=== PATIENT | male | born 1940 | race Caucasian/White ===

== ENCOUNTER 2016-08-21 11:34 | Inpatient (IN) | payer MEDICARE, OTHER ==
[2016-08-21] MEDS ORDERED: Levalbuterol 1.25 MG/3 ML Inhal Soln UD IH STA ×2 (12:15)
[2016-08-21] MEDS ORDERED: guaiFENesin 200 mg/10 ml Syrup UD PO STA (12:15)
[2016-08-21] MEDS ORDERED: Ipratropium 0.02% Inhal Soln (0.5 mg/2.5 ml) UD IH STA (12:15)
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
[2016-08-21 13:14] LABS: ADD MANUAL DIFF? NO
[2016-08-21 13:21] LABS: BASO # 0.02 K/mm3 (0.0-2.0); BASO % 0.2 % (0.0-3.0); EOS % 0.2 % (1.5-5.0); GRAN # 9.21 (1.4-6.5); GRAN % 78.6 % (50.0-68.0); HEMATOCRIT 37.4 % (42.0-52.0); LYMPH # 1.1 (1.2-3.4); LYMPH % 9.4 % (22.0-35.0); MEAN CORPUSCULAR HEMOGLOBIN 31.9 pg (25.0-35.0); MEAN PLATELET VOLUME 9.3 fl (7.0-11.0); MONO # 1.4 (0.1-0.6); MONO % 11.6 % (1.0-6.0); PLATELET COUNT 187 10^3/uL (120.0-450.0); RED CELL DISTRIBUTION WIDTH 12.2 % (11.5-14.5); WHITE BLOOD COUNT 11.7 10^3/ul (4.5-11.0)
[2016-08-21 13:32] LABS: INR 1.29 (0.93-1.08); PARTIAL THROMBOPLASTIN TIME 27.9 Seconds (23.7-30.8)
[2016-08-21 13:33] LABS: D DIMER 0.32 mg/L FEU (0-0.50)
[2016-08-21 13:35] LABS: ALKALINE PHOSPHATASE 63 U/L (38-133); ALT/SGPT 17 U/L (7-56); AST/SGOT 37 U/L (15-59); BILIRUBIN,TOTAL 0.7 mg/dL (0.2-1.3); BLOOD UREA NITROGEN 26 mg/dL (7-21); CALCIUM 9.4 mg/dL (8.4-10.5); CARBON DIOXIDE 32 mmol/L (21-33); CHLORIDE 91 mmol/L (98-107); GFR AFRICAN-AMERICAN > 60; GLUCOSE,RANDOM 268 mg/dL (70-110); LIPASE 335 U/L (23-300); MAGNESIUM 1.6 mg/dL (1.7-2.2); POTASSIUM 4.8 mmol/L (3.6-5.0); SODIUM 130 mmol/L (132-148); TOTAL PROTEIN 7.6 g/dL (5.8-8.3)
[2016-08-21 13:50] LABS: TROPONIN I < 0.01 ng/mL
[2016-08-21] MEDS ORDERED: Azithromycin 500MG/NS 250ml 250 ML IVPB STA (14:55)
[2016-08-21] MEDS ORDERED: cefTRIAXone 1 gm 100 ML IV STA (14:55)
--- NOTE | 2016-08-21 16:00 | RAD ---
HISTORY: cough, cp COMPARISON: No prior. FINDINGS: LUNGS: No active pulmonary disease. PLEURA: No significant pleural effusion identified, no pneumothorax apparent. CARDIOVASCULAR: Normal. OSSEOUS STRUCTURES: No significant abnormalities. VISUALIZED UPPER ABDOMEN: Normal. OTHER FINDINGS: None. IMPRESSION: No active disease.
[2016-08-21 16:33] VITALS: BMI 25.8
--- NOTE | 2016-08-21 16:58 | CARD ---
APPROVED REPORT EKG Measurement Heart [id number] <Conclusion> Normal sinus rhythm Septal infarct, age undetermined Abnormal ECG
[2016-08-21] MEDS ORDERED: Non Formulary Medication (Ranitidine Hcl [Zantac] 1 TAB) PO SCH (18:00)
[2016-08-21] MEDS ORDERED: Benzocaine/Menthol (Cepacol) Lozenge MT PRN (18:06)
[2016-08-21 19:06] LABS: IRON 13 ug/dL (45-180)
[2016-08-21 19:16] LABS: AMYLASE 93 U/L (35-125); CHOLESTEROL 134 mg/dL (130-200); LIPASE 206 U/L (23-300)
[2016-08-21] MEDS: Insulin Reg-LOW-Coverage SC SCH ×2 (19:32→23:17)
[2016-08-21] MEDS: cefTRIAXone 1 gm 100 ML IVPB SCH (19:33)
[2016-08-21] MEDS: Magnesium Oxide 400 mg Tab UD PO SCH (19:41)
--- NOTE | 2016-08-21 20:01 | CON ---
DATE: 08/21/2016 REFERRING PHYSICIAN: Dr. Katz. REASON FOR CONSULT: Cough, shortness of breath, history of gastroesophageal reflux disease, may have sleep apnea syndrome. HISTORY OF PRESENT ILLNESS: This is a 76-year-old gentleman with a history of recurrent bronchitis, carries a diagnosis of chronic lung disease, history of pneumonia, diabetes, hypertension, hyperlipid emia, admits to have snoring at nighttime, very poor night sleep, multiple awakenings, admits to have a nocturnal aspiration with acid reflux. He sleeps best still while sitting up. He comes in [facility] e of cough, shortness of breath and sore throat. No nausea, no chest pain, no dysuria. No leg pain or leg swelling. PAST MEDICAL HISTORY: Chronic lung disease, pneumonia, diabetes, hypertension and hyperlipidemia. ALLERGIES: None known. SOCIAL HISTORY: Nonsmoker, nondrinker. FAMILY HISTORY: No significant cardiopulmonary disease reported. MEDICATIONS: He is on DuoNeb q.6 hours, Ecotrin 81 mg daily, insulin coverage, 400 mg twice a day, glyburide 5 mg twice a day, Pepcid 40 mg daily, Rocephin 1 gram daily, Solu-Medrol 40 mg q.12 ho urs, Zestril 20 mg daily, Zithromax 500 mg daily. REVIEW OF SYSTEMS: No headache, not much rhinitis. Rodney a cough, shortness of breath, epigastric disc omfort, multiple night awakenings. No nausea. Denies any vomiting. No dysuria. No leg pain, no le g swelling. PHYSICAL EXAMINATION: GENERAL: Lying in the bed in mild distress secondary to cough and shortness of breath. VITAL SIGNS: Temp is 98, heart rate is 97, respiratory rate is 20, blood pressure 130/59 and pulse o x 97% on room air. HEENT: Small oral cavity. Mallampati score is 4. NECK: Supple, no JVD, no maxillary area tenderness. Nasal mucosa looks okay. LUNGS: Has scattered rhonchi. HEART: S1, S2. ABDOMEN: Soft, nontender. No organomegaly. EXTREMITIES: There is no edema. NEUROLOGIC: Awake, alert, follows simple commands. LABORATORY DATA: Shows hemoglobin 12.7, hematocrit 37.4, WBC 11.7, platelet count is 187. INR 1.29, PTT 28. D-dimer is 0.32. Sodium 130, potassium 4.8, chloride 91, bicarbonate 32, BUN 26, creatinin e is 1.0, glucose is 268, calcium is 9.4, magnesium 1.6, AST 37, ALT 17, alkaline phosphatase is 63, LDH is 572. Iron is 88. Troponin is less than 0.01. ProBNP 148. Albumin is 3.8. Lipase is 335. Vitamin B12 is 420 and folate is more than 20. Urinalysis is not available. Had a chest x-ray done today in the Emergency Room, which shows no active pulmonary disease. CAT scan of the chest done abo 2013; it showed multiple areas of tree-in-bud opacity through the right lung, most compatible with infectious inflammatory process. IMPRESSION AND PLAN: Bronchiectasis with recurrent bronchitis, diabetes, hypertension, most likely h as gastroesophageal reflux disease especially exacerbated with sleep apnea syndrome. Agree with Dr. Katz with the present management. I will decrease Solu-Medrol to 20 q.12 hours. I will add Lyrica 25 mg twice a day. Will also add Cepacol lozenges, Tessalon Perles 3 times a day and Pepcid 40 mg t wice a day. Keep head elevated at 45 degree. GERD precaution. Gastric prophylaxis. Deep venous th rombosis prophylaxis. Add doxycycline p.o. twice a day. Will recommend outpatient PFT and sleep cosmo dy. Will do CAT scan of the chest for followup on bronchiectasis if there is any worsening of diseas e. Thank you and will follow with you. Barron Gan MD cc: [id number] TT: 08/21/2016 20:00:50 Confirmation # [id number] Dictation # [id number] adrienne
[2016-08-21 20:55] LABS: TROPONIN I 0.01 ng/mL
[2016-08-21] MEDS: Albuterol-Ipratrop 3 mg / 0.5 (3 ml) UD IH SCH (21:05)
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
[2016-08-21] MEDS ORDERED: MethylPREDNISolone 40 mg Vial IVP SCH (22:00)
[2016-08-21 22:33] LABS: FOLATE > 20.0 ng/mL
[2016-08-21] MEDS: MethylPREDNISolone 40 mg Vial IVP SCH (23:17)
[2016-08-22] MEDS: Albuterol-Ipratrop 3 mg / 0.5 (3 ml) UD IH SCH ×4 (02:36→21:05)
[2016-08-22 06:46] LABS: HEMATOCRIT 34.7 % (42.0-52.0); MEAN CELL VOLUME 93.3 fL (80.0-105.0); MEAN CORPUSCULAR HEMOGLOBIN 31.2 pg (25.0-35.0); MEAN CORPUSCULAR HGB CONC 33.4 g/dl (31.0-37.0); MEAN PLATELET VOLUME 9.7 fl (7.0-11.0); RED CELL DISTRIBUTION WIDTH 12.4 % (11.5-14.5); WHITE BLOOD COUNT 13.5 10^3/ul (4.5-11.0)
[2016-08-22 07:18] LABS: ALKALINE PHOSPHATASE 67 U/L (38-133); ALT/SGPT 31 U/L (7-56); AST/SGOT 37 U/L (15-59); BILIRUBIN,TOTAL 0.6 mg/dL (0.2-1.3); BLOOD UREA NITROGEN 33 mg/dL (7-21); CALCIUM 9.2 mg/dL (8.4-10.5); CARBON DIOXIDE 28 mmol/L (21-33); CHLORIDE 94 mmol/L (95-110); GFR AFRICAN-AMERICAN > 60; POTASSIUM 4.1 mmol/L (3.6-5.0); SODIUM 135 mmol/L (132-148); TOTAL PROTEIN 7.3 g/dL (5.8-8.3)
[2016-08-22 07:53] LABS: GLUCOSE,RANDOM 374 mg/dL (70-110)
[2016-08-22] MEDS: Pantoprazole 40 mg EC Tab PO SCH ×2 (08:23→17:16)
[2016-08-22] MEDS: Insulin Reg-LOW-Coverage SC SCH ×3 (08:23→17:16)
[2016-08-22] MEDS: cefTRIAXone 1 gm 100 ML IVPB SCH (09:41)
[2016-08-22] MEDS: Magnesium Oxide 400 mg Tab UD PO SCH ×2 (09:42→17:16)
[2016-08-22] MEDS: MethylPREDNISolone 40 mg Vial IVP SCH ×2 (09:44→21:30)
[2016-08-22] MEDS ORDERED: Azithromycin 500 MG in Sodium Chloride 0.9% 250 ML IVPB SCH (10:00)
--- NOTE | 2016-08-22 10:49 | CT ---
PROCEDURE: CT Chest without contrast HISTORY: bronchiactesis COMPARISON: CT of the chest 07/09/2013 TECHNIQUE: Contiguous axial images were obtained through the chest without intravenous contrast enhancement. Sagittal and coronal reconstructions were performed. Radiation dose (DLP): 344 mGy-cm. This CT exam was performed using one or more of the following dose reduction techniques: Automated exposure control, adjustment of the mA and/or kV according to patient size, and/or use of iterative reconstruction technique. FINDINGS: LUNGS: There is peribronchial thickening bilaterally consistent with bronchitis. There is a 9 mm nodule in the superior segment of the left lower lobe adjacent to the hilum. This is seen on image 72. This was not present on the previous exam. The peribronchial thickening is chronic MEDIASTINUM: Unremarkable thoracic aorta. No aneurysm. Normal sized heart. Main pulmonary artery unremarkable. No vascular congestion. No lymphadenopathy. PLEURA: No pleural fluid. No pneumothorax. BONES: No fracture. No destructive lesion. UPPER ABDOMEN: Grossly unremarkable. OTHER FINDINGS: None. IMPRESSION: Chronic peribronchial thickening consistent with bronchitis 9 mm nodule in the superior segment in a left lower lobe. Followup may be indicated
[2016-08-22] MEDS: Azithromycin 500MG/NS 250ml 250 ML IVPB SCH (11:38)
[2016-08-22 13:46] VITALS: RESP 20
--- NOTE | 2016-08-22 15:48 | CON ---
DATE: 08/22/2016 REASON FOR CONSULTATION: Cardiac evaluation, cough, chest pain on coughing. BRIEF CLINICAL HISTORY: This is a 76-year-old male with a past history of recurrent bronchitis. Adm itted with a sore throat and can feel congestion and on coughing, patient has chest pain. Denies any chest pain or dyspnea on exertion. Denies any chest pain, walk a few miles, but no chest pain. PAST MEDICAL HISTORY: Significant for chronic obstructive lung disease, pneumonia, diabetes, hyperte nsion, hyperlipidemia. ALLERGIES: No known drug allergy. SOCIAL HISTORY: Denies smoking. Denies any history of alcohol abuse. PREVIOUS CARDIAC WORKUP: The patient had a stress test 06/12/2012 and was found to be essentially nor mal myocardial perfusion study, ejection fraction 71%. The patient had also echo possibly in Dr. Rodas's office and told negative. The patient had yesterday, CT chest was done this morning when I cam e to see him and it was grossly unremarkable, 9 mm nodule in the superior segment of left lower lobe noted and follow up recommended. REVIEW OF SYSTEMS: As per HPI. CURRENT MEDICATIONS: The patient at home was taking lisinopril 20 mg daily, glyburide 5 mg, ranitidi ne 1 mg, aspirin 81 mg daily. PHYSICAL EXAMINATION: VITAL SIGNS: Temperature afebrile, heart rate 95, blood pressure 141/89. HEENT: PERRLA. Extraocular muscles intact. NECK: Supple. No carotid bruits. No thyromegaly. CHEST: Clear to auscultation. HEART: S1, S2 regular. ABDOMEN: Soft. EXTREMITIES: Clubbing, cyanosis negative. BLOOD WORKUP: WBC 13. , hemoglobin 11. , hematocrit 34.7, platelet count 196. Chemistry jaycee ws sodium 135, potassium 4. , chloride 94, carbon dioxide 28, anion gap of , BUN 70, creatin ine 1.0. Troponin 0.0, negative. EKG shows normal sinus, heart rate of 70. IMPRESSION: Atypical chest pain, no evidence of myocardial infarction, probably chronic obstru ctive pulmonary disease exacerbation, upper respiratory tract infection, bronchitis, rule out underly ing coronary artery disease, history of a stress test in 2012, negative, ex-tobacco abuse, diabetes, hypertension, hyperlipidemia. Given the multiple risk factors for coronary artery disease, suggest s tress test as outpatient. We will add CPK, troponin in the morning. We will do TSH and lipid profil e in today's blood. We will follow with you. Thank you, Dr. Katz, for providing us the opportunity in taking care of the patient. We will follo w with you. If remains stable, we will discontinue telemetry. Barron Bailey MD cc: [id number] TT: 08/22/2016 15:15:18 Confirmation # [id number] Dictation # [id number] en
--- NOTE | 2016-08-22 16:11 | PN ---
DATE: 08/22/2016 The patient is a 76-year-old male. The patient seen and examined on the bedside, looks comfortable. Cough is better, shortness of breath is better. No fever. Complaining about high sugar. No nausea , vomiting, diarrhea. No hematuria, no hematochezia. No chest pain, no palpitation. PHYSICAL EXAMINATION: VITAL SIGNS: Temperature 97.2, pulse 95, blood pressure 141/89, respiratory rate 20. HEENT: Head normocephalic, atraumatic. Eyes: PERRLA. Extraocular muscles intact. Conjunctivae pi nk. Eyelids unremarkable. Nose patent. Mucous membranes moist. NECK: Supple. No carotid bruit, no JVD, no thyromegaly. CHEST: Bilaterally symmetrical. HEART: S1, S2 positive. LUNGS: Clear to auscultation. ABDOMEN: Soft. Bowel sounds positive. No organomegaly. EXTREMITIES: No edema, no cyanosis. NEUROLOGIC: The patient is awake, alert, moving all 4 extremities. No focal deficits. MEDICATIONS: Cepacol lozenges, Ecotrin, insulin, Rocephin, Zithromax, DuoNeb, Lyrica, magnesium oxid e, glimepiride, pantoprazole, Solu-Medrol, lisinopril. LABORATORIES: White blood cells 13.5, hemoglobin 11.6, hematocrit 34.7, platelets 196. Sodium 135, potassium 4.1, BUN 33, creatinine 1.0, glucose 374, magnesium 1.6. ASSESSMENT AND PLAN: The patient is a 76-year-old male with leukocytosis, anemia, history of hyponat remia, hypochloremia, increased BUN, uncontrolled diabetes mellitus, hypomagnesemia, iron deficiency. Went for CAT scan of the chest without contrast. As per Dr. Sha Mays, chronic peribronchial t hickening consistent with bronchitis, 9 mm nodule in the superior segment in the left lower lobe, fol low up may be indicated. Seen by Dr. Gan. History of recurrent bronchitis with bronchiectasis, g astroesophageal reflux disease, especially exacerbated with sleep apnea syndrome. Dr. Gan decreas ed Solu-Medrol from 40 to 20 mg q. 12 hours, added Lyrica, added Cepacol lozenges, Tessalon Perles, P epcid. Gastroesophageal reflux disease, dyspepsia. Dr. Gan added doxycycline, recommended outpat ient pulmonary function test. Appreciate Dr. Gan's input. Waiting for Dr. Murillo's input. Gastr ointestinal and deep venous thrombosis prophylaxis. We will follow up. Kathi Katz MD cc: [id number] TT: 08/22/2016 16:10:54 Confirmation # [id number] Dictation # [id number] en
[2016-08-22 16:24] LABS: PH,URINE 5.5 (4.7-8.0); URINE BILIRUBIN NEGATIVE (NEGATIVE); URINE BLOOD TRACE-INTACT (NEGATIVE); URINE GLUCOSE (UA) >=1000 mg/dL (NEGATIVE); URINE KETONE NEGATIVE (NEGATIVE); URINE LEUKOCYTE ESTERASE NEGATIVE Leu/uL (NEGATIVE); URINE PROTEIN NEGATIVE mg/dL (<30 mg/dL); URINE UROBILINOGEN 0.2 E.U./dL (<1 E.U./dL)
[2016-08-22] MEDS ORDERED: Insulin Reg-LOW-Coverage SC SCH (16:30)
[2016-08-22 16:50] LABS: URINE APPEARANCE CLEAR (CLEAR); URINE COLOR YELLOW (YELLOW)
--- NOTE | 2016-08-22 17:25 | CARD ---
APPROVED REPORT EXAM: Two-dimensional and M-mode echocardiogram with Doppler and color Doppler. INDICATION Chest Pain LVFX 2D DIMENSIONS Left Atrium (2D)4.1 (1.6-4.0cm)IVSd0.9 (0.7-1.1cm) LVDd3.8 (3.9-5.9cm)PWd1.1 (0.7-1.1cm) LVDs2.6 (2.5-4.0cm)FS (%) 32.1 % LVEF (%)61.1 (>50%) M-Mode DIMENSIONS Aortic Root2.80 (2.2-3.7cm)Aortic Cusp Exc.1.70 (1.5-2.0cm) Aortic Valve AoV Peak Sbantzns205.0cm/sAoV VTI32.7cmAO Peak GR.14mmHg LVOT Peak Fatvwrnf787.0cm/sLVOT VTI26.20cmAO Mean GR.7mmHg Mitral Valve MV E Fmetnvjj407.0cm/sMV A Hswmipwx979.0cm/sE/A ratio0.7 TDI Lateral E' Peak V9.85cm/sMedial E' Peak V7.31cm/sE/Lateral E'10.4 E/Medial E'14.0 Pulmonary Valve PV Peak Xxifatxw30.5cm/sPV Peak Grad.4mmHg Tricuspid Valve TR Peak Ujpkqmrt431hx/sRAP JVWQAWYI23bzXuMT Peak Gr.46mmHg JWVE79jvSj LEFT VENTRICLE The left ventricle is normal size. There is normal left ventricular wall thickness. The left ventricular function is normal.EF-55-60% There is normal LV segmental wall motion. Transmitral Doppler flow pattern is Grade III-reversible restrictive diastolic dysfunction. No left ventricle thrombus noted on this study. There is no ventricular septal defect visualized. There is no left ventricular aneurysm. There is no mass noted in the left ventricle. RIGHT VENTRICLE The right ventricle is normal size. There is normal right ventricular wall thickness. The right ventricular systolic function is normal. ATRIA The left atrium is mildly dilated. The right atrium size is normal. The interatrial septum is intact with no evidence for an atrial septal defect. AORTIC VALVE The aortic valve is normal in structure. No aortic regurgitation is present. There is no aortic valvular stenosis. There is no aortic valvular vegetation. MITRAL VALVE The mitral valve is thickened but opens well. Mitral regurgitation is mild. There is no mitral valve stenosis. There is no evidence of mitral valve prolapse. TRICUSPID VALVE The tricuspid valve leaflets are thickened , but open well. There is mild to moderate tricuspid regurgitation.RVSP-56 mmof Hg. There is no tricuspid valve stenosis. There is no tricuspid valve prolapse or vegetation. PULMONIC VALVE The pulmonic valve is borderline thickened. There is trace to mild pulmonic valvular regurgitation. There is no pulmonic valvular stenosis. GREAT VESSELS The aortic root is normal in size. The ascending aorta is normal in size. The pulmonary artery is normal. The IVC is normal in size and collapses >50% with inspiration. PERICARDIAL EFFUSION There is no pleural effusion. There is no pericardial effusion. <Conclusion> The left ventricle is normal size. There is normal left ventricular wall thickness. The left ventricular function is normal.EF-55-60% Mitral regurgitation is mild. There is mild to moderate tricuspid regurgitation.RVSP-56 mmof Hg.
--- NOTE | 2016-08-22 18:44 | PN ---
DATE: 08/22/2016 REFERRING PHYSICIAN: Dr. Katz. SUBJECTIVE: He is lying in the bed, head at 45 degrees, having dinner, feels much better, decreased cough, decreased shortness of breath. No nausea, vomiting, diarrhea. No leg pain or leg swelling. Admitted to have snoring, daytime sleepy and tired. OBJECTIVE: GENERAL: No acute distress. VITAL SIGNS: Temp is 98, heart rate is 95, respiratory rate is 20, blood pressure 141/89, pulse ox 9 4% on room air. HEENT: Moist mucous membrane. Crowded airway. Mallampati score is 4. NECK: Supple. No JVD. LUNGS: Has scattered rhonchi. HEART: S1 and S2. ABDOMEN: Soft, nontender. No organomegaly. EXTREMITIES: No edema. NEUROLOGIC: Awake, alert, follows simple commands. MEDICATIONS: He is on Cepacol lozenges q. 2 hours p.r.n., DuoNeb q. 6 hours, Ecotrin 81 mg daily, me tformin 500 mg daily, insulin coverage, Lyrica 25 mg twice a day, mag oxide 400 mg twice a day, glybu ride 5 mg twice a day, Protonix 40 mg daily, Rocephin 1 gram daily, Solu-Medrol 20 mg q. 12 hours, T essalon Perles 100 mg 3 times a day, Zestril 20 mg daily, Zithromax 500 mg daily. LABORATORY DATA: Shows hemoglobin 11.6, hematocrit 34.7, WBC 13.4, platelet count is 196. Sodium 13 5, potassium 4.1, chloride 94, bicarbonate 28, BUN 33, creatinine 1.0, glucose 415, calcium is 9.2. AST 37, ALT 31, alkaline phosphatase is 67. Albumin is 3.7. TSH 0.2. Microbiology: Blood cultures have been negative. CAT scan of the chest done yesterday, which shows chronic peribronchial thicken ing consistent with bronchitis, 9 mm nodule in the superior segment of the left lower lobe. Followup indicated. Had echocardiogram done today, which shows normal LV ejection fraction of 55-60%, mitral regurg, ywbx-vn-gvaoernz tricuspid regurg, right ventricular systolic pressure is 56. IMPRESSION AND PLAN: Bronchiectasis with acute bronchitis, lung nodule, diabetes, hypertension, most likely has gastroesophageal reflux disease, may have sleep apnea syndrome, cardiac diastolic dysfunc tion with pulmonary hypertension. Continue IV and inhaled bronchodilator, keep head elevated at 45 d egree. Proton inhibitor, DVT prophylaxis. Will need followup CAT scan in 3 months to assure the sta bility of lung nodule. We will also need attended sleep study as outpatient, PFT as outpatient. Adam nk you and will follow with you. Barron Gan MD cc: [id number] TT: 08/22/2016 18:43:56 Confirmation # [id number] Dictation # [id number] jn
[2016-08-22 18:51] LABS: URINE BACTERIA SMALL (NEG); URINE EPITHELIAL CELLS 0 - 2 /hpf (0-5); URINE WBC 0 - 2 /hpf (0-6)
[2016-08-22] MEDS: Insulin Reg-HIGH-Coverage SC SCH (21:48)
[2016-08-23] MEDS: Albuterol-Ipratrop 3 mg / 0.5 (3 ml) UD IH SCH ×5 (01:22→23:21)
[2016-08-23] MEDS: Magnesium Oxide 400 mg Tab UD PO SCH ×2 (10:59→17:35)
[2016-08-23] MEDS: cefTRIAXone 1 gm 100 ML IVPB SCH (10:59)
[2016-08-23] MEDS: Pantoprazole 40 mg EC Tab PO SCH ×2 (10:59→17:35)
[2016-08-23] MEDS: MethylPREDNISolone 40 mg Vial IVP SCH (11:00)
[2016-08-23] MEDS: Azithromycin 500MG/NS 250ml 250 ML IVPB SCH (11:00)
[2016-08-23] MEDS: Insulin Reg-HIGH-Coverage SC SCH ×4 (11:06→23:49)
--- NOTE | 2016-08-23 13:44 | PN ---
DATE: 08/23/2016 REASON FOR CONSULTATION AND FOLLOWUP: Cardiac evaluation, chest pain and coughing, atypical. BRIEF CLINICAL HISTORY: This is a 76-year-old male with a past medical history significant for recur rent bronchitis, admitted with sore throat and congestion and coughing. Denies any chest pain, short ness of breath, any palpitation now. PHYSICAL EXAMINATION: As follows: VITAL SIGNS: Temperature afebrile, heart rate 85, blood pressure 123/65. HEENT: PERRLA. Extraocular muscles intact. NECK: Supple. No carotid bruits. No thyromegaly. CHEST: Clear to auscultation. HEART: S1, S2 regular. ABDOMEN: Soft. EXTREMITIES: Clubbing and cyanosis negative. BLOOD WORKUP: As follows: WBC 13.5, hemoglobin 11.6, hematocrit 34.7, platelet count 196. Chemistr y shows sodium 135, potassium ____, chloride 94, carbon dioxide 28, anion gap of 17, BUN 33, creatini ne 1.0. Troponin 0.01, negative. No evidence of acute coronary syndrome. Atypical chest pain. The patient underwent echocardiograph y done yesterday that showed normal LV size, ejection fraction 55% to 60%, mild mitral regurgitation, emzz-gi-trjpvzki tricuspid regurgitation, RV systolic pressure 56. Chest CT showed chronic peribron chial thickening consistent with a bronchitis. RECOMMENDATION: Continue aggressive treatment for COPD. The patient is scheduled for a stress test on 09/01/2016. We will follow with you. Thank you, Dr. Katz, for providing the opportunity in taking care of the patient. Barron Bailey MD cc: [id number] TT: 08/23/2016 13:44:28 Confirmation # [id number] Dictation # [id number]
[2016-08-23] MEDS ORDERED: Insulin Regular 1 UNITS/0.01 ML ML SC STA (15:23)
--- NOTE | 2016-08-23 21:51 | PN ---
DATE: 08/23/2016 REFERRING PHYSICIAN: Dr. Katz. SUBJECTIVELY: He is lying in the bed, head at 45 degrees. Feels much better. Walked around the [employer] station today. Cough is improved. No nausea, no vomiting, diarrhea, leg pain, or leg swelling. OBJECTIVELY: No acute distress. Temp is 98, heart rate is 85, respiratory rate is 20, blood pressure 120/85, pulse ox 97% on room air . HENT: Moist mucous membranes. Small oral cavity. NECK: Supple, no JVD. LUNGS: Have a fair airflow with few rhonchi. HEART: S1, S2. ABDOMEN: Soft, nontender. No organomegaly. EXTREMITIES: There is no edema. NEUROLOGICALLY: Awake, alert. Follows simple commands. MEDICATIONS: He is on Cepacol lozenges q. 12 hours p.r.n., DuoNeb q. 6 hours, Ecotrin 81 mg daily, m etformin 1000 mg twice a day, insulin coverage, Januvia 100 mg daily, Lyrica 25 mg twice daily, mag o xide 40 mg twice a day, Glyburide is at 5 mg twice a day, prednisone 10 mg daily, Protonix 20 mg twic e a day, Rocephin 1 g daily, Tessalon Perles 100 mg 3 times a day, Zestril 20 mg daily, Zithromax 50 0 mg daily. LABORATORY DATA: Reviewed. Blood sugar this morning 363. Microbiology: Blood cultures have been n egative. IMPRESSION AND PLAN: Bronchiectasis with acute bronchitis, lung nodule, diabetes, hypertension, makenna roesophageal reflux disease, may have component of sleep apnea syndrome, cardiac diastolic dysfunctio n, pulmonary hypertension. I had a long discussion with the patient about sleep apnea and its consequences, relation to GERD and recurrent bronchitis. Spoke to nurse practitioner earlier today. Solu-Medrol discontinued. Placed on prednisone. Will cut down antibiotics. Thank you, and will follow with you. Barron Gan MD cc: [id number] TT: 08/23/2016 21:50:45 Confirmation # [id number] Dictation # [id number] jocelyn
--- NOTE | 2016-08-24 01:30 | PN ---
DATE: 08/23/2016 SUBJECTIVE: The patient is a 76-year-old male. The patient was seen and examined at the bedside, looks comfortable. No nausea, vomiting, or diarrhea. No hematuria or hematochezia. Coughing is better. Shortness of breath is better. No swelling of the legs. PHYSICAL EXAMINATION: VITAL SIGNS: Temperature 98, heart rate 85, respiratory rate 18, blood pressure 122/65. HEENT: Head normocephalic, atraumatic. Eyes: PERRLA, extraocular muscles intact, conjunctivae pink. Eyelids: Unremarkable. Nose: Patent. NECK: Supple. No carotid bruit, JVD, or thyromegaly. CHEST: Bilaterally symmetrical. HEART: S1, S2 positive. LUNGS: Clear to auscultation. ABDOMEN: Soft. Bowel sounds present. No organomegaly. EXTREMITIES: No clubbing, no cyanosis. NEUROLOGIC: The patient is awake, alert. Moving all 4 extremities. No focal deficit. LABORATORY DATA: White blood cell 13.5, hemoglobin 11.6, hematocrit 34.7, platelets 196. Sodium 135, chloride 94, bicarbonate 28, BUN 33, creatinine 1.0. Troponin is 0.01. ASSESSMENT AND PLAN: The patient is a 76-year-old male who came in with bronchitis, chest pain. According to clother in, no evidence of acute coronary artery syndrome, atypical chest pain. The patient underwent echocardiography. It showed normal ventricular size, ejection fraction 55-60%, adro-fb-spvuzdcx tricuspid regurgitation, right ventricular systolic pressure 56. CT scan of the chest shows chronic peribronchial thickening consistent with bronchitis. The patient is scheduled for stress test on 09/01/2016, as per clother in. Seen by the fish hatchery supervisor, Dr. Gan. The patient has bronchiectasis, asthma, hypertension, maybe gastroesophageal reflux disease, sleep apnea syndrome, pulmonary hypertension. Continue IV and inhaled bronchodilators, proton pump inhibitors, DVT prophylaxis. Need followup CT scan in 3 months. Given tapering dose of steroids and antibiotics. We will follow up. Kathi Katz MD cc: [id number] TT: 08/24/2016 01:30:06 Confirmation # [id number] Dictation # [id number] bennie COOL
[2016-08-24] MEDS: Albuterol-Ipratrop 3 mg / 0.5 (3 ml) UD IH SCH ×2 (01:41→07:41)
[2016-08-24 07:16] LABS: ADD MANUAL DIFF? NO
[2016-08-24 07:26] LABS: BASO # 0.03 K/mm3 (0.0-2.0); BASO % 0.2 % (0.0-3.0); EOS % 0.1 % (1.5-5.0); GRAN # 13.71 (1.4-6.5); GRAN % 74.7 % (50.0-68.0); HEMATOCRIT 33.5 % (42.0-52.0); LYMPH # 2.8 (1.2-3.4); LYMPH % 15.1 % (22.0-35.0); MEAN CELL VOLUME 93.8 fL (80.0-105.0); MEAN CORPUSCULAR HEMOGLOBIN 31.4 pg (25.0-35.0); MEAN CORPUSCULAR HGB CONC 33.4 g/dl (31.0-37.0); MEAN PLATELET VOLUME 9.7 fl (7.0-11.0); MONO # 1.8 (0.1-0.6); MONO % 9.9 % (1.0-6.0); PLATELET COUNT 219 10^3/uL (120.0-450.0); RED CELL DISTRIBUTION WIDTH 12.4 % (11.5-14.5); WHITE BLOOD COUNT 18.3 10^3/ul (4.5-11.0)
[2016-08-24 07:52] LABS: ALB/GLOB RATIO 0.9 (1.1-1.8); ALKALINE PHOSPHATASE 56 U/L (38-133); ALT/SGPT 34 U/L (7-56); AST/SGOT 39 U/L (15-59); BILIRUBIN,TOTAL 0.5 mg/dL (0.2-1.3); BLOOD UREA NITROGEN 39 mg/dL (7-21); CARBON DIOXIDE 30 mmol/L (21-33); CHLORIDE 96 mmol/L (98-107); GFR AFRICAN-AMERICAN > 60; MAGNESIUM 2.3 mg/dL (1.7-2.2); POTASSIUM 4.6 mmol/L (3.6-5.0); SODIUM 133 mmol/L (132-148); TOTAL PROTEIN 7.4 g/dL (5.8-8.3)
[2016-08-24 08:04] LABS: GLUCOSE,RANDOM 46 mg/dL (70-110)
[2016-08-24] MEDS: Pantoprazole 40 mg EC Tab PO SCH (08:29)
[2016-08-24] MEDS: Insulin Reg-HIGH-Coverage SC SCH ×2 (08:29→11:54)
[2016-08-24 09:08] VITALS: BP 126/66; PULSE 94; TEMP 97; O2SAT 100
[2016-08-24] MEDS: cefTRIAXone 1 gm 100 ML IVPB SCH (09:54)
--- NOTE | 2016-08-25 08:19 | PN ---
DATE: 08/24/2016 The patient is in room 577, bed 2. REASON FOR CONSULTATION AND FOLLOWUP: Cardiac evaluation, chest pain with cough, atypical chest pain . HISTORY OF PRESENT ILLNESS: The patient is a 76-year-old male with past medical history significant for recurrent bronchitis, admitted with a sore throat and congestion, coughing. Denies any chest marco n, shortness of breath or any palpitation. The patient stated that when he coughs, he gets some ches t pain. Otherwise, he has no chest pain. The patient is feeling much better now. He does not have any pain at present. PHYSICAL EXAMINATION: VITAL SIGNS: Blood pressure 126/66, respirations 20, pulse 94, temperature 97. HEAD: Normocephalic. EYES: Pupils normal. Conjunctivae slightly pale. NECK: JVP low. Carotid equal. THORAX: AP diameter normal. LUNGS: Clear. CARDIOVASCULAR: S1, S2. ABDOMEN: Soft, nontender, no organomegaly. Bowel sounds normal. EXTREMITIES: No clubbing, no cyanosis. LABORATORY DATA: WBC is 18.3, hemoglobin 11.2, hematocrit 33.5, platelet 219. Sugar 249. Sodium 13 5, potassium 4.1, BUN 33, creatinine 1.0. Today's BUN 39, creatinine 1.2, calcium 9.0, magnesium 2.3 . AST, ALT normal. Total protein and albumin normal. DIAGNOSES: Chest pain, atypical associated with only cough. Echo showed normal left ventricular siz e, ejection fraction 55%-60%, mild mitral regurgitation, mild to moderate tricuspid regurg, right reji tricular systolic pressure of [address] showed chronic peribronchial thickening consiste nt with bronchitis. PLAN: The patient is scheduled for a stress test 09/01/2016. We will continue present therapy for br onchitis. The patient on lisinopril 20 daily, glyburide 5 b.i.d., Zantac 1 b.i.d., prednisone 10 mg daily, metformin 500 b.i.d. We will continue present therapy and will follow the stress test. Barron Murillo MD cc: [id number] TT: 08/24/2016 19:26:21 Confirmation # [id number] Dictation # [id number] jn
== END 2016-08-24 13:51 | disposition home or self-care (01) | DRG 191 ==
LOC: ED 11:34 → ERH 14:53 → 2RNO 18:44 → OBSVTOIN 08-22 10:13 → 5RSO 08-22 16:58
PROVIDERS: ADMIT Internal Medicine; ATTEND Internal Medicine
DX: J47.0 Bronchiectasis with acute lower respiratory infection (principal); E87.1 Hypo-osmolality and hyponatremia; I27.2 Other secondary pulmonary hypertension; E11.9 Type 2 diabetes mellitus without complications; D64.9 Anemia, unspecified; I10 Essential (primary) hypertension; J45.909 Unspecified asthma, uncomplicated; I08.1 Rheumatic disorders of both mitral and tricuspid valves; E78.5 Hyperlipidemia, unspecified; G47.30 Sleep apnea, unspecified; E78.00 Pure hypercholesterolemia, unspecified; J20.9 Acute bronchitis, unspecified; K21.9 Gastro-esophageal reflux disease without esophagitis; Z79.82 Long term (current) use of aspirin; Z79.899 Other long term (current) drug therapy; Z87.01 Personal history of pneumonia (recurrent); Z87.891 Personal history of nicotine dependence; Z98.42 Cataract extraction status, left eye; Z98.41 Cataract extraction status, right eye; K59.00 Constipation, unspecified; R00.0 Tachycardia, unspecified; R40.2412 Glasgow coma scale score 13-15, at arrival to emergency department; R91.1 Solitary pulmonary nodule

== ENCOUNTER 2017-07-06 10:26 | Observation (INO) | payer MEDICARE, OTHER ==
[2017-07-06 12:02] VITALS: BMI 24.3
[2017-07-06] MEDS ORDERED: Sodium Chloride 0.9% 1,000 ML IV STA (12:04)
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
[2017-07-06] MEDS ORDERED: Vancomycin 1gm in NS 250ml 1 GM/250 ML BAG IVPB STA (12:26)
[2017-07-06] MEDS ORDERED: Piperacillin/Tazobact 3.375 gm 100 ML IVPB STA (12:26)
[2017-07-06 12:59] LABS: BASO # 0.05 K/mm3 (0.0-2.0); BASO % 0.7 % (0.0-3.0); EOS # 0.4 (0.0-0.7); EOS % 5.2 % (1.5-5.0); GRAN # 4.05 (1.4-6.5); GRAN % 59.8 % (50.0-68.0); HEMOGLOBIN 11.6 g/dL (14.0-18.0); LYMPH # 1.5 (1.2-3.4); LYMPH % 21.9 % (22.0-35.0); MEAN CELL VOLUME 95.8 fl (80.0-105.0); MEAN CORPUSCULAR HEMOGLOBIN 30.7 pg (25.0-35.0); MEAN PLATELET VOLUME 9.5 fl (7.0-11.0); MONO # 0.8 (0.1-0.6); MONO % 12.4 % (1.0-6.0); RBC 3.78 10^6/uL (3.5-6.1); RED CELL DISTRIBUTION WIDTH 13.5 % (11.5-14.5); WHITE BLOOD COUNT 6.8 10^3/ul (4.5-11.0)
[2017-07-06 13:00] LABS: VENOUS BLOOD GAS BASE EXCESS 2.7 mmol/L (0.0-2.0); VENOUS BLOOD GAS PO2 31 mm/Hg (30-55); VENOUS BLOOD PH 7.27 (7.32-7.43)
[2017-07-06 13:11] LABS: ALB/GLOB RATIO 1.2 (1.1-1.8); ALBUMIN 3.9 g/dL (3.0-4.8); ALT/SGPT 29 U/L (7-56); AST/SGOT 26 U/L (17-59); BLOOD UREA NITROGEN 21 mg/dL (7-21); CALCIUM 10.1 mg/dL (8.4-10.5); GFR AFRICAN-AMERICAN > 60; GFR NON-AFRICAN AMERICAN > 60; LIPASE 354 U/L (23-300)
[2017-07-06 14:09] LABS: PH,URINE 6.5 (4.7-8.0); URINE BILIRUBIN NEGATIVE (NEGATIVE); URINE BLOOD NEGATIVE (NEGATIVE); URINE GLUCOSE (UA) 250 mg/dL (NEGATIVE); URINE LEUKOCYTE ESTERASE NEGATIVE Leu/uL (NEGATIVE); URINE NITRATE NEGATIVE (NEGATIVE); URINE PROTEIN NEGATIVE mg/dL (<30 mg/dL); URINE UROBILINOGEN 0.2 E.U./dL (<1 E.U./dL)
[2017-07-06 14:12] LABS: URINE APPEARANCE CLEAR (CLEAR); URINE COLOR LIGHT YELLOW (YELLOW)
[2017-07-06 15:45] VITALS: RESP 18
[2017-07-06] MEDS ORDERED: Influenza Vaccine 60 mcg/0.5 mL SYR (4YR UP) IM ONE (17:11)
[2017-07-06] MEDS ORDERED: Pneumococcal 23-Valent Vaccine IM ONE (17:11)
[2017-07-06] MEDS: Insulin Reg-LOW-Coverage SC SCH (22:34)
[2017-07-07] MEDS ORDERED: Pantoprazole 40 mg EC Tab PO SCH (06:00)
[2017-07-07] MEDS: Insulin Reg-LOW-Coverage SC SCH ×2 (08:00→12:00)
[2017-07-07 08:37] VITALS: BP 102/46; PULSE 75; TEMP 98.5; O2SAT 98
[2017-07-07] MEDS ORDERED: Clotrimazole 1% Top Soln(10 ml) TOP SCH (10:00)
[2017-07-07] MEDS ORDERED: cefTRIAXone 1 gm 1 GM/100 ML BAG IVPB SCH (10:00)
--- NOTE | 2017-07-07 15:49 | HP ---
CHIEF COMPLAINT: Swelling of the leg, redness and warmth. HISTORY OF PRESENT ILLNESS: Mr. Rogers Stevens is a 77-year-old male with past medical history of diabetes mellitus, hypertension, hypercholesterolemia, and pancreatitis who came to the emergency department complaining of rash to his inner left arm three weeks ago, the patient noticed mild pain this morning causing him to come to further evaluation. The patient denies fever, chills. He wants to go home. No nausea, vomiting, or diarrhea. No hematuria or hematochezia. No headache. No dizziness. PAST MEDICAL HISTORY: Pneumonia, hypertension, bilateral cataract surgery, diabetes mellitus type 2, constipation. FAMILY HISTORY: Father and mother, noncontributory. HABITS: Never smoked. No drugs. No ethanol. ALLERGIES: THE PATIENT IS NOT ALLERGIC TO ANY MEDICATIONS. HOME MEDICATIONS: Aspirin, Zantac, and Zestril. REVIEW OF SYSTEMS: The patient was seen and examined at the bedside. Looking comfortable. No fever. No chills. No night sweats. No chest pain. No shortness of breath. No nausea, vomiting, or diarrhea. PHYSICAL EXAMINATION: VITAL SIGNS: Temperature 98.7, pulse 86, respiratory rate 18, blood pressure 120/80 . HEENT: Head: Normocephalic, atraumatic. Eyes: PERRLA. Extraocular muscles intact. Conjunctivae clear. Nose patent. Mucous membranes are moist. NECK: Supple. No carotid bruits. No JVD or thyromegaly. CHEST: Bilaterally symmetrical. HEART: S1 and S2 positive. LUNGS: cta . ABDOMEN: Soft. Bowel sounds present. No organomegaly. EXTREMITIES: No edema. No cyanosis. NEUROLOGIC: The patient is awake and alert. Moving all four extremities. No focal deficit. ASSESSMENT AND PLAN: The patient came with coughing, shortness of breath, chronic obstructive pulmonary disease exacerbation, cellulitis of the lower extremities. Gastrointestinal and deep venous thrombosis prophylaxis. Repeat labs. We will follow up. Kathi Katz MD SILVINA
--- NOTE | 2017-07-08 07:51 | CON ---
DATE: 07/07/2017 LOCATION: The patient is in bed. The patient was seen earlier this morning in room 575, bed 2. CHIEF COMPLAINT: Left arm erythema times several days. HISTORY OF PRESENT ILLNESS: This is a 77-year-old [place] male with past medical history significant for diabetes mellitus, hypertension, high cholesterol, pancreatitis, was seen in the emergency room because of rash in his left arm has gone worse. He denied any fevers, any chills. No nausea, no vomiting, no chest pain. PAST MEDICAL HISTORY: Significant for diabetes, hypertension, high cholesterol and pancreatitis. PAST SURGICAL HISTORY: Includes cataract surgery. ALLERGIES: THE PATIENT HAS NO KNOWN ALLERGIES TO ANY ANTIBIOTICS. MEDICATIONS AT HOME: Include Zestril, aspirin and Zantac. PHYSICAL EXAMINATION VITAL SIGNS: The patient's temperature of 98, blood pressure is 113/50, respiratory rate of 18, heart rate of 76. HEENT: Examination is unremarkable. NECK: Supple. LUNGS: Decreased breath sounds. HEART: Normal S1, S2. ABDOMEN: Soft, nontender. EXTREMITIES: Examination of left arm reveals the patient has mild erythema. No evidence of essential pallor. In the inner left arm, there is some tinea. LABORATORY DATA: Laboratory examination reveals a white count of 6.8, hemoglobin of 11. Sedimentation rate is 50. Blood gases are noted. BUN of 21, creatinine of 1.0, lipase of 354. Urinalysis is noted. Microbiology reveals blood cultures are negative, urine cultures are negative. Dr. Katz's history and physical examination is noted. ASSESSMENT AND PLAN: This is a 77-year-old [place] male with diabetes, hypertension, high cholesterol, pancreatitis. No evidence of dog exposure. The patient lives in [place] and is not exposed to any ticks in the middle of the winter. Lyme disease would be unusual for a rash of this kind and a short course of antibiotics and close followup. We would also place the patient on an antifungal cream as it had an fungal component of that arm. Case discussed with nurse practitioner on the floor and should follow up as outpatient closely. Jevon Palmer MD
== END 2017-07-07 17:30 | disposition home or self-care (01) ==
LOC: ED 10:26 → INTOOBSV 12:27 → ERH 12:27 → 5RSO 18:37
PROVIDERS: ADMIT Internal Medicine; ATTEND Internal Medicine
DX: L03.114 Cellulitis of left upper limb (principal); L03.115 Cellulitis of right lower limb; L03.116 Cellulitis of left lower limb; E11.9 Type 2 diabetes mellitus without complications; E78.5 Hyperlipidemia, unspecified; E78.00 Pure hypercholesterolemia, unspecified; I10 Essential (primary) hypertension; J44.1 Chronic obstructive pulmonary disease with (acute) exacerbation; K85.90 Acute pancreatitis without necrosis or infection, unspecified; Z79.82 Long term (current) use of aspirin; Z87.01 Personal history of pneumonia (recurrent); Z98.42 Cataract extraction status, left eye; Z98.41 Cataract extraction status, right eye; K59.00 Constipation, unspecified
CPT/HCPCS: 36415; 80053; 81003; 82803; 82948; 83690; 85025; 85651; 86140; 86618; 87040; 87086; 96361; 96365; 96366; 96367; 99285; G0378; J0696; J2543; J7040

== ENCOUNTER 2018-03-16 20:11 | Observation (INO) | payer MEDICARE, OTHER ==
[2018-03-16] MEDS: Sodium Chloride 0.9% 1,000 ML IV SCH (21:15)
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
[2018-03-16 21:33] LABS: HEMOGLOBIN 12.5 g/dL (14.0-18.0); MEAN CELL VOLUME 92.1 fl (80.0-105.0); MEAN CORPUSCULAR HEMOGLOBIN 30.9 pg (25.0-35.0); MEAN CORPUSCULAR HGB CONC 33.6 g/dl (31.0-37.0); MEAN PLATELET VOLUME 9.3 fl (7.0-11.0); RBC 4.04 10^6/uL (3.5-6.1); RED CELL DISTRIBUTION WIDTH 12.7 % (11.5-14.5)
[2018-03-16 21:41] LABS: ALB/GLOB RATIO 1.1 (1.1-1.8); ALBUMIN 4.1 g/dL (3.0-4.8); ALT/SGPT 28 U/L (7-56); AST/SGOT 38 U/L (17-59); BLOOD UREA NITROGEN 24 mg/dL (7-21); CALCIUM 9.7 mg/dL (8.4-10.5); GFR NON-AFRICAN AMERICAN > 60; LIPASE 203 U/L (23-300)
[2018-03-16 21:52] LABS: TROPONIN I < 0.01 ng/mL
[2018-03-17 02:48] VITALS: BMI 26.1
--- NOTE | 2018-03-17 05:11 | CT ---
Date of service: 03/16/2018 PROCEDURE: CT HEAD WITHOUT CONTRAST. HISTORY: Dizziness COMPARISON: None available. TECHNIQUE: Axial computed tomography images were obtained through the head/brain without intravenous contrast. Radiation dose: Total exam DLP = 1038.61 mGy-cm. This CT exam was performed using one or more of the following dose reduction techniques: Automated exposure control, adjustment of the mA and/or kV according to patient size, and/or use of iterative reconstruction technique. FINDINGS: HEMORRHAGE: No intracranial hemorrhage. BRAIN: Cintron-white matter differentiation is preserved. There is no mass, mass effect or abnormal extra-axial fluid collection. There is no territorial infarction. The midline sagittal structures are normal. VENTRICLES: There is mild age-related global parenchymal volume loss and proportionate enlargement of the ventricles and cortical sulci. CALVARIUM: There is no calvarial fracture or extracranial soft tissue swelling. PARANASAL SINUSES: Predominantly clear. MASTOID AIR CELLS: Predominantly clear. OTHER FINDINGS: None. IMPRESSION: No acute intracranial abnormality. A preliminary report was provided by [employer].
--- NOTE | 2018-03-17 10:31 | CARD ---
APPROVED REPORT Date of service: 03/16/2018 EKG Measurement Heart [id number] <Conclusion> Normal sinus rhythm Normal ECG No change
[2018-03-17] MEDS: Sodium Chloride 0.9% 1,000 ML IV SCH ×3 (11:11→21:57)
[2018-03-17] MEDS: Insulin Reg-LOW-Coverage SC SCH ×3 (12:36→22:00)
[2018-03-17 20:42] LABS: PH,URINE 6.5 (4.7-8.0); URINE APPEARANCE CLEAR (CLEAR); URINE BILIRUBIN NEGATIVE (NEGATIVE); URINE BLOOD NEGATIVE (NEGATIVE); URINE COLOR COLORLESS (YELLOW); URINE GLUCOSE (UA) NEGATIVE (NEGATIVE); URINE LEUKOCYTE ESTERASE NEGATIVE Leu/uL (NEGATIVE); URINE PROTEIN NEGATIVE mg/dL (<30 mg/dL); URINE UROBILINOGEN 0.2 E.U./dL (<1 E.U./dL)
[2018-03-18 00:09] VITALS: RESP 18
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
[2018-03-18] MEDS: Insulin Reg-LOW-Coverage SC SCH ×4 (07:43→22:00)
[2018-03-18 08:13] LABS: HEMOGLOBIN 11.7 g/dL (14.0-18.0); MEAN CELL VOLUME 93.2 fl (80.0-105.0); MEAN CORPUSCULAR HEMOGLOBIN 30.7 pg (25.0-35.0); MEAN PLATELET VOLUME 9.6 fl (7.0-11.0); RBC 3.81 10^6/uL (3.5-6.1)
[2018-03-18 08:22] LABS: IRON 51 ug/dL (45-180)
[2018-03-18] MEDS: Sodium Chloride 0.9% 1,000 ML IV SCH ×2 (08:27→21:04)
[2018-03-18 08:33] LABS: % IRON SATURATION 15 % (20-55); TOTAL IRON BINDING CAPACITY 335 ug/dL (261-462)
[2018-03-18 08:37] LABS: TROPONIN I < 0.01 ng/mL
[2018-03-18 08:43] LABS: LDL CHOLESTEROL 94 mg/dL (0-129)
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
[2018-03-18 08:58] LABS: BLOOD UREA NITROGEN 19 mg/dL (7-21); CALCIUM 9.1 mg/dL (8.4-10.5); GFR NON-AFRICAN AMERICAN > 60; HDL CHOLESTEROL 47 mg/dL (29-60)
[2018-03-18 12:35] LABS: FOLATE 12.3 ng/mL
--- NOTE | 2018-03-18 15:40 | CON ---
DATE: 03/18/2018 CHIEF COMPLAINT: Dizziness. HISTORY OF PRESENT ILLNESS: This is a 78-year-old male, history of type 2 diabetes mellitus, hypertension presenting with progressively worsening dizziness and lightheadedness over the past few days. He had intermittent spinning sensation of room and near syncopal episode therefore here in the hospital. CAT scan of the head showed no acute intracranial abnormality. Here the MRI done 03/04/2018 was unremarkable. Currently, he is no longer dizzy but he has frequent episodes of fluctuation blood glucose level where he was hypoglycemic today on 42. Endocrinology is on board and is adjusting his diabetic medications. He will probably need underlying outpatient vestibular therapy. PAST MEDICAL HISTORY: As above. SOCIAL HISTORY: No illicit drug use, smoking, or EtOH abuse. FAMILY HISTORY: Noncontributory. REVIEW OF SYSTEMS: A 14-point review of systems is negative except as per the HPI. MEDICATIONS: Reviewed by nurse per reconciliation sheet. LABORATORY DATA: Sodium is 139, potassium 2.8, chloride 105, carbon dioxide 30, BUN of 19, creatinine 1.1, random glucose of 42, A1c 7.7. PHYSICAL EXAMINATION: GENERAL: The patient is sitting up in bed, in no acute distress. VITAL SIGNS: Temperature 98.2, pulse rate 84, blood pressure 137/68, respiratory rate 18, oxygen saturation 96% on room air. HEENT: Atraumatic, normocephalic. PERRLA. Extraocular muscles intact. NECK: Supple. No JVD, no adenopathy noted. LUNGS: Clear to auscultation. No adventitious sounds. HEART: S1, S2. Normal rate and rhythm. No murmurs, rubs, or gallops. ABDOMEN: Soft, nontender, and nondistended. Bowel sounds are present. EXTREMITIES: No clubbing. No cyanosis. Peripheral pulses 2+ felt bilaterally. NEUROLOGIC: The patient is alert and oriented to person, place, month, and year. Speech is fluent without any errors. Cranial nerves II through XII are intact. Motor: Moves all extremities equally. Toes are downgoing bilaterally. Sensory exam: Light touch, pinprick,proprioception decreased up to the calves bilaterally. Decreased vibration of the toes. DTRs are 2+ throughout, 1 at both knees and ankles. Coordination: Kibjyi-yn-ceed intact. No dysmetria noted. Gait is deferred for now. IMPRESSION: Dizziness, seems more like a positional vertigo, superimposed underlying glycemic fluctuations such as transient hypoglycemic episodes. At this time, we will recommend: 1. Outpatient vestibular therapy. 2. Follow instruction on diet. 3. Keep blood sugars between 140-180 and follow diabetic recommendation by Endocrinology and he is clinically stable at this time. His MRI was done unremarkable, therefore, no need for further imaging. Continue on current present medical management. Santhosh Carvajal MD
[2018-03-18] MEDS: Iron Complex Polysacch 150mg Cap PO SCH (17:43)
--- NOTE | 2018-03-19 01:06 | PN ---
DATE: 03/18/2018 ENDOCRINOLOGY FOLLOWUP NOTE LOCATION: Room 364. This is a 78-year-old male, presenting with aggressive bouts of dizziness and lightheadedness and near syncopal episode and is now being followed closely for metabolic management. His hemoglobin A1c is 7.7% as noted. The chemistry showed a BUN of 19, sodium 139, potassium 3.8, chloride 105, CO2 of 30, glucose was actually quite low this morning as 42 mg/dL and creatinine is 1.1. So at this time, we will actually discontinue the glipizide given as 5 mg b.i.d. as ordered. We will continue the metformin given as 500 mg b.i.d. as given. We will continue also the very low dose correction scale using regular insulin as ordered. We will obtain serial chemistries and supplement accordingly as needed. We will follow. Karely Mattson MD
[2018-03-19] MEDS: Insulin Reg-LOW-Coverage SC SCH ×2 (07:54→11:26)
--- NOTE | 2018-03-19 08:31 | PN ---
DATE: 03/18/2018 HISTORY OF PRESENT ILLNESS: Patient seen and examined at the bedside, looking comfortable. Dizziness is better. No fever. No chills. No nausea, vomiting, or diarrhea. No hematuria. No hematochezia. No swelling of the legs. No chest pain. No palpitations. No headache. No dizziness. PHYSICAL EXAMINATION: VITALS: Temperature 98.2, pulse 84, blood pressure 137/68, respiratory rate 18, and oxygenation 96% at room air. HEENT: Head normocephalic, atraumatic. Eyes, PERRLA. Extraocular muscles intact. Conjunctivae clear. Nose patent. Mucous membrane moist. NECK; Supple. No carotid bruit. No JVD or thyromegaly. CHEST: Bilateral symmetrical. HEART: S1 and S2 positive. LUNGS: Clear to auscultation. ABDOMEN: Soft. Bowel sounds positive. No organomegaly. EXTREMITIES: No edema. No cyanosis. NEUROLOGIC: Patient awake and alert, moving all four extremities. No focal deficits. MEDICATIONS: iron, Glucophage, insulin, Lipitor, Pepcid, NS, B12 injections I just started. LABORATORY DATA: White blood cell 9.0, hemoglobin 11.7, hematocrit 35.5, platelets 205. Sodium 139, potassium 3.8. BUN 90, creatinine 1.1. Glucose 42, yesterday was 101. Hemoglobin A1c 7.7. Iron saturation 11 and B12 of 300. ASSESSMENT AND PLAN: Mr. Rodney Mccloud, 78 years old male, with anemia; hypoglycemia; history of diabetes mellitus, uncontrolled type 2, hemoglobin A1c 7.7; iron deficiency; B12 deficiency, came with dizziness, feeling of passing out. Seen by Dr. Carvajal, neurologist. Even discussion done with Dr. Carvajal. According to Neurology, dizziness is more likely positional vertigo, superimposed underlying glycemic fluctuations, has had problem with hypoglycemia episode. We recommended outpatient vestibular therapy. Follow up instructions with the diet. Continue present treatment. Review Dr. Karely Mattson's notes also. Patient has hypertension, hypercholesterolemia. Gastrointestinal and deep vein thrombosis prophylaxes. Repeat labs. We will follow up. Kathi Katz MD [facility] # [id number] MTDD
[2018-03-19 09:07] VITALS: BP 145/73; TEMP 98; O2SAT 98
[2018-03-19] MEDS: Iron Complex Polysacch 150mg Cap PO SCH (09:18)
[2018-03-19] MEDS: Sodium Chloride 0.9% 1,000 ML IV SCH (09:26)
[2018-03-19 10:49] VITALS: PULSE 75
--- NOTE | 2018-03-19 22:20 | PN ---
DATE: 03/19/2018 ENDO FOLLOWUP NOTE LOCATION: Room #364. SUBJECTIVE: This is a 78-year-old male with recent uncontrolled type 2 diabetes, now being followed closely for metabolic management. His glycemic levels are fluctuating as noted with an early childhood education coordinator hypoglycemia today and the glucose level of mg/dL. His chemistries showed a BUN of 19, sodium 139, potassium 3.8, chloride 105, CO2 30, glucose 42 and creatinine 1.1. His hemoglobin A1c is 7.7%. His glucose levels otherwise today have ranged from 95 to 139 mg/dL. So at this time, we will continue only his metformin given as 500 mg b.i.d. as ordered. We will discontinue his glipizide as given and ordered. We will hold off further insulin coverage otherwise. He has been advised to follow with his primary doctor for ongoing medical and diabetic followup. Karely Mattson MD
--- NOTE | 2018-03-20 06:25 | CON ---
DATE: 03/19/2018 The patient is in room 364, bed 1. REASON FOR CONSULTATION: Vomiting, dizziness, history of hypertension, diabetes, high cholesterol, and COPD. HISTORY OF PRESENT ILLNESS: The patient is a 78-year-old with known case of diabetes, hypertension, hyperlipidemia, history of COPD, in the past he had also pneumonia admitted with the history that he suddenly had vomiting and after that he felt everything was spinning around. Denies any chest pain, shortness of breath, palpitation associated with this episode. PAST MEDICAL HISTORY: Positive for diabetes, hypertension, hyperlipidemia, COPD, was also treated for pneumonia. PERSONAL HISTORY: Denies any smoking. Denies drinking. ALLERGIES: THE PATIENT DENIES ANY ALLERGIES. The patient's previous cardiac workup, the patient had a stress test on 08/31/2016, which was normal with ejection fraction of 67%. The patient had echo also on 08/22/2016, which showed normal sized LV, normal LV systolic function, ejection fraction of 55% to 60%, mild mitral regurgitation, mild to moderate tricuspid regurgitation, RVSP 56 mmHg suggestive of moderate pulmonary hypertension. REVIEW OF SYSTEMS: All the systems reviewed, positives mentioned in the history, others were negative. HOME MEDICATIONS: List of home medication is Zocor, glipizide, metformin 500 b.i.d., Antivert 12.5 b.i.d., Ferrex 150 mg p.o. daily, Pepcid 40 mg p.o. daily. PHYSICAL EXAMINATION VITAL SIGNS: Blood pressure 145/73, respirations 18, pulse 73, and temperature 98. HEENT: Head is normocephalic. Eyes: Pupils are normal. Conjunctivae normal. NECK: JVP low. Carotid equal. Thorax AP diameter normal. LUNGS: Clear. CARDIOVASCULAR: S1 and S2. ABDOMEN: Soft and nontender. No organomegaly. Bowel sound normal. EXTREMITIES: No clubbing, no cyanosis. LABORATORY DATA: WBC 9.0, hemoglobin 11.7, hematocrit 35.5, and platelets 205. Sodium 139, potassium 3.8, BUN 19, creatinine 1.1, random sugar 94. Earlier sugar on admission on 03/18/2018, showed 42. Troponin negative. Triglyceride 91, cholesterol 153, LDL 94, and HDL 47. EKG showed normal sinus rhythm. CAT scan of the head showed no acute intracranial abnormality. DIAGNOSES: Vomiting followed by episode of vertigo, diabetes mellitus, hypertension, high cholesterol, history of chronic obstructive pulmonary disease, and history of pneumonia in the past. PLAN: Clinically, the patient's cardiac status is stable. He has no chest pain or palpitation associated with the episode and the patient's stress test echo was done in 2017 and report has been mentioned above in the history. We will continue present therapy of medication including Antivert, metformin, Zocor, aspirin, glipizide, Ferrex 150, Pepcid, Ecotrin 81 mg daily. He will be followed in office. Barron Murillo MD
== END 2018-03-19 13:29 | disposition home or self-care (01) ==
LOC: ED 20:11 → ERH 03-17 00:10 → 3RNO 03-17 02:21
PROVIDERS: ADMIT Internal Medicine; ATTEND Internal Medicine
DX: E11.649 Type 2 diabetes mellitus with hypoglycemia without coma (principal); R42 Dizziness and giddiness; I10 Essential (primary) hypertension; J44.9 Chronic obstructive pulmonary disease, unspecified; E53.8 Deficiency of other specified B group vitamins; E78.00 Pure hypercholesterolemia, unspecified; E87.1 Hypo-osmolality and hyponatremia; D50.9 Iron deficiency anemia, unspecified
CPT/HCPCS: 36415; 70450; 80048; 80053; 80061; 81003; 82550; 82607; 82746; 82948; 83036; 83540; 83550; 83615; 83690; 84443; 84484; 85027; 93005; 96372; 96374; 96375; 99285; G0378; J2405; J3420; J7030

== ENCOUNTER 2018-04-25 07:54 | Day surgery (SDC) | payer MEDICARE, OTHER ==
[2018-04-25] MEDS ORDERED: Propofol 10 mg/ml Inj (20 ML) ONE (09:36)
[2018-04-25] MEDS ORDERED: Etomidate 20 mg/10ml Inj IV ONE (09:57)
[2018-04-25] MEDS ORDERED: Sodium Chloride 0.9% 1,000 ML IV SCH (10:00)
[2018-04-25] MEDS ORDERED: Levalbuterol 0.63 MG/3 ML Inhal Soln UD IH PRN (11:37)
[2018-04-25] MEDS ORDERED: Levalbuterol 1.25 MG/3 ML Inhal Soln UD IH ONE (11:39)
[2018-04-25] MEDS ORDERED: Levalbuterol 1.25 MG/3 ML Inhal Soln UD ONE (11:39)
--- NOTE | 2018-04-25 12:48 | RAD ---
Date of service: 04/25/2018 HISTORY: desaturation COMPARISON: 08/21/2016 FINDINGS: LUNGS: There is a patchy infiltrate in the left lung PLEURA: No significant pleural effusion identified, no pneumothorax apparent. CARDIOVASCULAR: No aortic atherosclerotic calcification present. Normal cardiac size. No pulmonary vascular congestion. OSSEOUS STRUCTURES: No significant abnormalities. VISUALIZED UPPER ABDOMEN: Normal. OTHER FINDINGS: None. IMPRESSION: Patchy infiltrate in the left lung
--- NOTE | 2018-04-25 12:48 | RAD ---
Date of service: 04/25/2018 HISTORY: epigastric pain COMPARISON: None available. FINDINGS: BOWEL: Normal. No obstruction. No free air. BONES: Normal. OTHER FINDINGS: None. IMPRESSION: No active disease.
[2018-04-25 14:10] VITALS: RESP 16; TEMP 98
[2018-04-25 14:15] VITALS: BP 123/56; PULSE 93; O2SAT 93
== END 2018-04-25 13:30 ==
LOC: ENDO 07:54
PROVIDERS: ATTEND Specialist
DX: K21.9 Gastro-esophageal reflux disease without esophagitis (principal); K21.0 Gastro-esophageal reflux disease with esophagitis; K44.9 Diaphragmatic hernia without obstruction or gangrene; E11.9 Type 2 diabetes mellitus without complications; J44.9 Chronic obstructive pulmonary disease, unspecified; E78.5 Hyperlipidemia, unspecified; I10 Essential (primary) hypertension; M19.90 Unspecified osteoarthritis, unspecified site; Z98.49 Cataract extraction status, unspecified eye; Z87.19 Personal history of other diseases of the digestive system; K29.50 Unspecified chronic gastritis without bleeding
CPT/HCPCS: 43239; 72HRC

== ENCOUNTER 2018-04-25 13:30 | Inpatient (IN) | payer MEDICARE, OTHER ==
[2018-04-25] MEDS: Sodium Chloride 0.9% 1,000 ML IV STA ×2 (13:30→14:07)
[2018-04-25] MEDS ORDERED: Piperacill/Tazo 4.5gm in NS 4.5 GM/100 ML BAG IVPB STA (13:35)
[2018-04-25] MEDS ORDERED: levoFLOXacin 750 mg in D5W 750 MG/150 ML BAG IVPB STA (13:35)
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
[2018-04-25] MEDS ORDERED: Vancomycin 1gm in NS 250ml 1 GM/250 ML BAG IVPB STA (13:39)
[2018-04-25 14:01] LABS: URINE APPEARANCE CLEAR (CLEAR); URINE BILIRUBIN NEGATIVE (NEGATIVE); URINE BLOOD NEGATIVE (NEGATIVE); URINE COLOR YELLOW (YELLOW); URINE GLUCOSE (UA) NEGATIVE (NEGATIVE); URINE LEUKOCYTE ESTERASE NEGATIVE Leu/uL (NEGATIVE); URINE PROTEIN NEGATIVE mg/dL (<30 mg/dL); URINE UROBILINOGEN 0.2 E.U./dL (<1 E.U./dL)
[2018-04-25 14:12] LABS: ARTERIAL BLOOD GAS HCO3 22.1 mmol/L (21-28); ARTERIAL BLOOD GAS HEMOGLOBIN 11.3 g/dL (11.7-17.4); ARTERIAL BLOOD GAS O2 CAPACITY 15.5 mL/dl (16-24); ARTERIAL BLOOD GAS O2 CONTENT 14.2 ML/dl (15-23); ARTERIAL BLOOD GAS O2 SAT 91.5 % (95-98); ARTERIAL BLOOD GAS PCO2 34 mm/Hg (35-45); ARTERIAL BLOOD GAS PH 7.42 (7.35-7.45); ARTERIAL BLOOD GAS TCO2 23.1 mmol.L (22-28)
[2018-04-25 14:15] LABS: BASO # 0.01 K/mm3 (0.0-2.0); BASO % 0.1 % (0.0-3.0); EOS % 0.3 % (1.5-5.0); GRAN # 8.15 (1.4-6.5); GRAN % 88.3 % (50.0-68.0); HEMOGLOBIN 12.4 g/dL (14.0-18.0); LYMPH # 0.7 (1.2-3.4); LYMPH % 7.9 % (22.0-35.0); MEAN CORPUSCULAR HGB CONC 33.3 g/dl (31.0-37.0); MEAN PLATELET VOLUME 9.3 fl (7.0-11.0); MONO # 0.3 (0.1-0.6); MONO % 3.4 % (1.0-6.0); RED CELL DISTRIBUTION WIDTH 12.9 % (11.5-14.5); WHITE BLOOD COUNT 9.2 10^3/uL (4.5-11.0)
[2018-04-25 14:25] LABS: ALB/GLOB RATIO 1.1 (1.1-1.8); ALBUMIN 3.7 g/dL (3.0-4.8); ALT/SGPT 26 U/L (7-56); AST/SGOT 26 U/L (17-59); BLOOD UREA NITROGEN 28 mg/dL (7-21); GFR NON-AFRICAN AMERICAN 59; LIPASE 221 U/L (23-300)
[2018-04-25 14:33] LABS: INR 1.47; PARTIAL THROMBOPLASTIN TIME 25.1 Seconds (25.1-36.5); PROTHROMBIN TIME 16.9 SECONDS (9.4-12.5)
[2018-04-25 14:40] LABS: VENOUS BLOOD GAS BASE EXCESS -1.5 mmol/L (0.0-2.0); VENOUS BLOOD GAS PO2 70 mm/Hg (30-55); VENOUS BLOOD PH 7.35 (7.32-7.43)
[2018-04-25 14:41] LABS: B-TYPE NATRIURETIC PEPTIDE 112 pg/mL (0-450); TROPONIN I < 0.01 ng/mL
[2018-04-25] MEDS ORDERED: Sodium Chloride 0.9% 1,000 ML IV STA (14:45)
[2018-04-25 18:08] LABS: VENOUS BLOOD GAS BASE EXCESS -4.1 mmol/L (0.0-2.0); VENOUS BLOOD GAS PO2 217 mm/Hg (30-55); VENOUS BLOOD PH 7.33 (7.32-7.43)
--- NOTE | 2018-04-25 18:14 | PCM.SEPTIC ---
<Jr Gu - Last Filed: 04/26/18 17:25> Sepsis Progress Note - Reassessment Type Date of Evaluation: 04/25/18 Time of Evaluation: 06:00 Reassessment Type: Non-invasive reassessment - Non Invasive Reassessment Were the most recent vital sign reviewed: Yes Vital Sign (Latest): Temp Pulse Resp BP Pulse Ox 101.3 F H 106 H 18 106/46 L 99 04/25/18 14:53 04/25/18 17:40 04/25/18 17:40 04/25/18 17:40 04/25/18 17:40 Cardiovascular: Yes: Regular Rate, Rhythm Respiratory: Yes: Rales (left sided) Capillary Refill: Normal (Less than 2 sec) Skin: Normal Color <Shelley Wheeler - Last Filed: 04/27/18 06:55> Sepsis Progress Note - Non Invasive Reassessment Vital Sign (Latest): Temp Pulse Resp BP Pulse Ox 98.7 F 65 18 105/49 L 100 04/26/18 16:00 04/27/18 04:10 04/26/18 19:43 04/26/18 18:00 04/26/18 18:40 Attending/Attestation - Attestation I have personally seen and examined this patient.: Yes I have fully participated in the care of the patient.: Yes I have reviewed all pertinent clinical information, including history, physical exam and plan: Yes
[2018-04-25] MEDS: Sodium Chloride 0.9% 1,000 ML IV SCH (19:04)
--- NOTE | 2018-04-25 19:16 | CARD ---
APPROVED REPORT Date of service: 04/25/2018 EKG Measurement Heart [id number] <Conclusion> Sinus tachycardia Otherwise normal ECG
[2018-04-25] MEDS: Pantoprazole 40mg/100mL NS 40 MG/100 ML BAG IVPB SCH (20:25)
[2018-04-25] MEDS: Vancomycin 1gm in NS 250ml 1 GM/250 ML BAG IVPB SCH (20:25)
[2018-04-25] MEDS ORDERED: Insulin Reg-LOW-Coverage SC SCH (22:00)
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
[2018-04-25 22:59] VITALS: BMI 28.7
[2018-04-26] MEDS: Sodium Chloride 0.9% 1,000 ML IV SCH (03:30)
[2018-04-26] MEDS: Pantoprazole 40mg/100mL NS 40 MG/100 ML BAG IVPB SCH ×2 (03:47→09:00)
[2018-04-26] MEDS: Piperacill/Tazo 4.5gm in NS 4.5 GM/100 ML BAG IVPB SCH ×2 (05:08)
[2018-04-26] MEDS: Insulin Reg-LOW-Coverage SC SCH ×3 (06:00→23:02)
[2018-04-26] MEDS ORDERED: Dextrose 50% SYRINGE Inj (50 ml) ONE (06:58)
[2018-04-26 07:04] LABS: BASO # 0.02 K/mm3 (0.0-2.0); BASO % 0.1 % (0.0-3.0); EOS # 0.1 (0.0-0.7); EOS % 0.5 % (1.5-5.0); GRAN # 13.57 (1.4-6.5); GRAN % 81.5 % (50.0-68.0); HEMOGLOBIN 9.9 g/dL (14.0-18.0); LYMPH # 1.6 (1.2-3.4); LYMPH % 9.8 % (22.0-35.0); MEAN CELL VOLUME 94.1 fl (80.0-105.0); MEAN CORPUSCULAR HEMOGLOBIN 30.9 pg (25.0-35.0); MEAN CORPUSCULAR HGB CONC 32.9 g/dl (31.0-37.0); MEAN PLATELET VOLUME 8.8 fl (7.0-11.0); MONO # 1.4 (0.1-0.6); MONO % 8.1 % (1.0-6.0); RBC 3.2 10^6/uL (3.5-6.1); RED CELL DISTRIBUTION WIDTH 13.1 % (11.5-14.5); WHITE BLOOD COUNT 16.7 10^3/uL (4.5-11.0)
[2018-04-26 07:09] LABS: IRON 16 ug/dL (45-180)
[2018-04-26] MEDS ORDERED: Dextrose 50% SYRINGE Inj (50 ml) IVP ONE (07:12)
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
[2018-04-26 07:18] LABS: % IRON SATURATION 6 % (20-55); TOTAL IRON BINDING CAPACITY 262 ug/dL (261-462)
[2018-04-26 07:19] LABS: TROPONIN I 0.02 ng/mL
[2018-04-26] MEDS ORDERED: Pantoprazole 40 mg EC Tab PO SCH (07:30)
[2018-04-26 07:32] LABS: ALB/GLOB RATIO 0.9 (1.1-1.8); ALBUMIN 2.7 g/dL (3.0-4.8); ALT/SGPT 29 U/L (7-56); AST/SGOT 20 U/L (17-59); BLOOD UREA NITROGEN 16 mg/dL (7-21); CALCIUM 7.6 mg/dL (8.4-10.5); GFR NON-AFRICAN AMERICAN > 60
--- NOTE | 2018-04-26 07:51 | CP.CCUPN ---
<Madi Figueroa - Last Filed: 04/26/18 10:39> CCU Subjective - Physician Review Subjective (Free Text): 04/26/18 07:48 Madi Figueroa DO, PGY1. ICU progress note for Dr Schaeffer Patient seen and examined at bedside. He is AAOx3, answering questions and in NAD. He does not report any complaints and feeling better. Had fingerstick BG of 44, D50 was given. Patient denied CP, SOB, fever, palpitations, N/V/D, hematemesis, emesis, blood per rectum or black stool CCU Objective - Vital Signs / Intake & Output Vital Signs (Last 4 hours): Vital Signs Temp 04/26/18 04:00 99.7 F H Intake and Output (Last 8hrs): Intake & Output 04/25/18 04/26/18 04/26/18 22:59 06:59 14:59 Intake Total 0 Output Total 800 Balance 1290 Weight 183 lb 6.4 oz Intake: IV 2089 Right Forearm 2089 Output: Urine 800 Urine, Voided 800 Other: Voiding Method Urinal # Bowel Movements 1 - Physical Exam Head: Positive for: Atraumatic, Normocephalic Pupils: Positive for: PERRL Extroacular Muscles: Positive for: EOMI Conjunctiva: Positive for: Normal Mouth: Positive for: Moist Mucous Membranes Neck: Positive for: Normal Range of Motion Respiratory/Chest: Positive for: Good Air Exchange, Wheezes (diffuse b/l). Negative for: Respiratory Distress, Accessory Muscle Use Cardiovascular: Positive for: Normal S1, S2, Tachycardic. Negative for: Murmurs Abdomen: Negative for: Tenderness, Distention, Peritoneal Signs Back: Positive for: Normal Inspection Upper Extremity: Positive for: Normal Inspection. Negative for: Cyanosis, Edema Lower Extremity: Positive for: Normal Inspection. Negative for: Edema Neurological: Positive for: GCS=15, CN II-XII Intact, Speech Normal Skin: Positive for: Warm, Dry, Pale. Negative for: Rashes Psychiatric: Positive for: Alert, Oriented x 3, Normal Insight, Normal Concentration - Medications Active Medications: Active Medications Generic Name Dose Route Start Last Admin Trade Name Freq PRN Reason Stop Dose Admin Sodium Chloride 1,000 mls @ 125 mls/hr 04/25/18 19:15 04/26/18 03:30 Sodium Chloride 0.9% IV 125 mls/hr .Q8H MARYBETH Administration Acetaminophen 1,000 mg in 100 mls @ 400 mls/hr 04/25/18 19:37 Ofirmev IVPB 04/27/18 19:38 Q6H PRN Temperature >100.4 Pantoprazole Sodium 40 mg in 100 mls @ 20 mls/hr 04/25/18 19:45 04/26/18 03:47 Protonix 40mg Ivpb IVPB 20 mls/hr .Q5H MARYBETH Administration Vancomycin HCl 1 gm in 250 mls @ 167 mls/hr 04/25/18 19:45 04/25/18 20:25 Vancomycin 1gm IVPB 167 mls/hr Q12H MARYBETH Administration Protocol Piperacillin Sod/Tazobactam Sod 4.5 gm in 100 mls @ 200 mls/hr 04/26/18 00:00 04/26/18 05:08 Zosyn 4.5 Gm In Ns 100ml IVPB 200 mls/hr Q6 MARYBETH Administration Protocol Insulin Human Regular 0 units 04/26/18 00:00 04/26/18 00:00 Humulin R Low SC Not Given Q6 MARYBETH Protocol Metoclopramide HCl 5 mg 04/25/18 22:00 04/26/18 03:46 Reglan IVP 04/26/18 22:01 5 mg Q6H MARYBETH Administration - Patient Studies Lab Studies: Lab Studies 04/26/18 04/26/18 04/26/18 Range/Units 06:54 06:45 06:45 WBC (4.5-11.0) 10^3/uL RBC (3.5-6.1) 10^6/uL Hgb (14.0-18.0) g/dL Hct (42.0-52.0) % MCV (80.0-105.0) fl MCH (25.0-35.0) pg MCHC (31.0-37.0) g/dl RDW (11.5-14.5) % Plt Count (120.0-450.0) 10^3/uL MPV (7.0-11.0) fl Gran % (50.0-68.0) % Lymph % (Auto) (22.0-35.0) % Polk % (Auto) (1.0-6.0) % Eos % (Auto) (1.5-5.0) % Baso % (Auto) (0.0-3.0) % Gran # (1.4-6.5) Lymph # (Auto) (1.2-3.4) Polk # (Auto) (0.1-0.6) Eos # (Auto) (0.0-0.7) Baso # (Auto) (0.0-2.0) K/mm3 PT (9.4-12.5) SECONDS INR APTT (25.1-36.5) Seconds pCO2 (35-45) mm/Hg pO2 (80-100) mm/Hg HCO3 (21-28) mmol/L ABG pH (7.35-7.45) ABG Total CO2 (22-28) mmol.L ABG O2 Saturation (95-98) % ABG O2 Content (15-23) ML/dl ABG Base Excess (-2.0-3.0) mmol/L ABG Hemoglobin (11.7-17.4) g/dL ABG Carboxyhemoglobin (0.5-1.5) % POC ABG HHb (Measured) (0-5) % ABG Methemoglobin (0.0-3.0) % ABG O2 Capacity (16-24) mL/dl VBG pH (7.32-7.43) VBG pCO2 (40-60) VBG HCO3 (21-28) mmol/l VBG Total CO2 (22-28) mmol.L VBG O2 Sat (Calc) (40-65) % VBG Base Excess (0.0-2.0) mmol/L VBG Potassium (3.6-5.2) mmol/L Hgb O2 Saturation (95.0-98.0) % Glucose (75-110) mg/dl Lactate (0.7-2.1) mmol/L FiO2 % Sodium 140 (132-148) mmol/L Potassium (3.6-5.0) mmol/L Chloride 114 H (98-107) mmol/L Carbon Dioxide 23 (21-33) mmol/L Anion Gap (10-20) BUN 16 (7-21) mg/dL Creatinine 1.1 (0.8-1.5) mg/dl Est GFR ( Amer) > 60 Est GFR (Non-Af Amer) > 60 POC Glucose (mg/dL) 44 L (65-110) mg/dL Random Glucose 57 L (70-110) mg/dL Calcium 7.6 L (8.4-10.5) mg/dL Phosphorus 1.9 L (2.5-4.5) mg/dL Magnesium 1.8 (1.7-2.2) mg/dL Iron 16 L (45-180) ug/dL TIBC 262 (261-462) ug/dL % Saturation 6 L (20-55) % Total Bilirubin 0.5 (0.2-1.3) mg/dL AST 20 (17-59) U/L ALT 29 (7-56) U/L Alkaline Phosphatase 53 (38-126) U/L Lactate Dehydrogenase (333-699) U/L Total Creatine Kinase (35-230) U/L Troponin I 0.02 ng/mL NT-Pro-B Natriuret Pep (0-450) pg/mL Total Protein 5.6 L (5.8-8.3) g/dL Albumin 2.7 L (3.0-4.8) g/dL Globulin 2.9 gm/dL Albumin/Globulin Ratio 0.9 L (1.1-1.8) Lipase (23-300) U/L Venous Blood Potassium (3.6-5.2) mmol/L Urine Color (YELLOW) Urine Appearance (CLEAR) Urine pH (4.7-8.0) Ur Specific Burson (1.005-1.035) Urine Protein (<30 mg/dL) mg/dL Urine Glucose (UA) (NEGATIVE) mg/dL Urine Ketones (NEGATIVE) mg/dL Urine Blood (NEGATIVE) Urine Nitrate (NEGATIVE) Urine Bilirubin (NEGATIVE) Urine Urobilinogen (<1 E.U./dL) E.U./dL Ur Leukocyte Esterase (NEGATIVE) Coleen/uL Influenza Typ A,B (EIA) (NEGATIVE) Blood Type Antibody Screen BBK History Checked 04/26/18 04/26/18 04/26/18 Range/Units 06:45 01:30 00:13 WBC 16.7 H D (4.5-11.0) 10^3/uL RBC 3.20 L (3.5-6.1) 10^6/uL Hgb 9.9 L (14.0-18.0) g/dL Hct 30.1 L (42.0-52.0) % MCV 94.1 (80.0-105.0) fl MCH 30.9 (25.0-35.0) pg MCHC 32.9 (31.0-37.0) g/dl RDW 13.1 (11.5-14.5) % Plt Count 173 (120.0-450.0) 10^3/uL MPV 8.8 (7.0-11.0) fl Gran % 81.5 H (50.0-68.0) % Lymph % (Auto) 9.8 L (22.0-35.0) % Polk % (Auto) 8.1 H (1.0-6.0) % Eos % (Auto) 0.5 L (1.5-5.0) % Baso % (Auto) 0.1 (0.0-3.0) % Gran # 13.57 H (1.4-6.5) Lymph # (Auto) 1.6 (1.2-3.4) Polk # (Auto) 1.4 H (0.1-0.6) Eos # (Auto) 0.1 (0.0-0.7) Baso # (Auto) 0.02 (0.0-2.0) K/mm3 PT (9.4-12.5) SECONDS INR APTT (25.1-36.5) Seconds pCO2 (35-45) mm/Hg pO2 (80-100) mm/Hg HCO3 (21-28) mmol/L ABG pH (7.35-7.45) ABG Total CO2 (22-28) mmol.L ABG O2 Saturation (95-98) % ABG O2 Content (15-23) ML/dl ABG Base Excess (-2.0-3.0) mmol/L ABG Hemoglobin (11.7-17.4) g/dL ABG Carboxyhemoglobin (0.5-1.5) % POC ABG HHb (Measured) (0-5) % ABG Methemoglobin (0.0-3.0) % ABG O2 Capacity (16-24) mL/dl VBG pH (7.32-7.43) VBG pCO2 (40-60) VBG HCO3 (21-28) mmol/l VBG Total CO2 (22-28) mmol.L VBG O2 Sat (Calc) (40-65) % VBG Base Excess (0.0-2.0) mmol/L VBG Potassium (3.6-5.2) mmol/L Hgb O2 Saturation (95.0-98.0) % Glucose (75-110) mg/dl Lactate (0.7-2.1) mmol/L FiO2 % Sodium (132-148) mmol/L Potassium (3.6-5.0) mmol/L Chloride (98-107) mmol/L Carbon Dioxide (21-33) mmol/L Anion Gap (10-20) BUN (7-21) mg/dL Creatinine (0.8-1.5) mg/dl Est GFR ( Amer) Est GFR (Non-Af Amer) POC Glucose (mg/dL) 123 H (65-110) mg/dL Random Glucose (70-110) mg/dL Calcium (8.4-10.5) mg/dL Phosphorus (2.5-4.5) mg/dL Magnesium (1.7-2.2) mg/dL Iron (45-180) ug/dL TIBC (261-462) ug/dL % Saturation (20-55) % Total Bilirubin (0.2-1.3) mg/dL AST (17-59) U/L ALT (7-56) U/L Alkaline Phosphatase (38-126) U/L Lactate Dehydrogenase (333-699) U/L Total Creatine Kinase (35-230) U/L Troponin I ng/mL NT-Pro-B Natriuret Pep (0-450) pg/mL Total Protein (5.8-8.3) g/dL Albumin (3.0-4.8) g/dL Globulin gm/dL Albumin/Globulin Ratio (1.1-1.8) Lipase (23-300) U/L Venous Blood Potassium (3.6-5.2) mmol/L Urine Color (YELLOW) Urine Appearance (CLEAR) Urine pH (4.7-8.0) Ur Specific Burson (1.005-1.035) Urine Protein (<30 mg/dL) mg/dL Urine Glucose (UA) (NEGATIVE) mg/dL Urine Ketones (NEGATIVE) mg/dL Urine Blood (NEGATIVE) Urine Nitrate (NEGATIVE) Urine Bilirubin (NEGATIVE) Urine Urobilinogen (<1 E.U./dL) E.U./dL Ur Leukocyte Esterase (NEGATIVE) Coleen/uL Influenza Typ A,B (EIA) (NEGATIVE) Blood Type B POSITIVE Antibody Screen Negative BBK History Checked No verified bt 04/25/18 04/25/18 04/25/18 Range/Units 21:15 21:15 18:03 WBC (4.5-11.0) 10^3/uL RBC (3.5-6.1) 10^6/uL Hgb 10.6 L (14.0-18.0) g/dL Hct (42.0-52.0) % MCV (80.0-105.0) fl MCH (25.0-35.0) pg MCHC (31.0-37.0) g/dl RDW (11.5-14.5) % Plt Count (120.0-450.0) 10^3/uL MPV (7.0-11.0) fl Gran % (50.0-68.0) % Lymph % (Auto) (22.0-35.0) % Polk % (Auto) (1.0-6.0) % Eos % (Auto) (1.5-5.0) % Baso % (Auto) (0.0-3.0) % Gran # (1.4-6.5) Lymph # (Auto) (1.2-3.4) Polk # (Auto) (0.1-0.6) Eos # (Auto) (0.0-0.7) Baso # (Auto) (0.0-2.0) K/mm3 PT (9.4-12.5) SECONDS INR APTT (25.1-36.5) Seconds pCO2 (35-45) mm/Hg pO2 217 H (80-100) mm/Hg HCO3 (21-28) mmol/L ABG pH (7.35-7.45) ABG Total CO2 (22-28) mmol.L ABG O2 Saturation (95-98) % ABG O2 Content (15-23) ML/dl ABG Base Excess (-2.0-3.0) mmol/L ABG Hemoglobin (11.7-17.4) g/dL ABG Carboxyhemoglobin (0.5-1.5) % POC ABG HHb (Measured) (0-5) % ABG Methemoglobin (0.0-3.0) % ABG O2 Capacity (16-24) mL/dl VBG pH 7.33 (7.32-7.43) VBG pCO2 41.0 (40-60) VBG HCO3 21.6 (21-28) mmol/l VBG Total CO2 22.9 (22-28) mmol.L VBG O2 Sat (Calc) 99.7 H (40-65) % VBG Base Excess -4.1 L (0.0-2.0) mmol/L VBG Potassium 3.4 L (3.6-5.2) mmol/L Hgb O2 Saturation (95.0-98.0) % Glucose 137 H (75-110) mg/dl Lactate 1.3 (0.7-2.1) mmol/L FiO2 21.0 % Sodium 138.0 (132-148) mmol/L Potassium (3.6-5.0) mmol/L Chloride 109.0 H (98-107) mmol/L Carbon Dioxide (21-33) mmol/L Anion Gap (10-20) BUN (7-21) mg/dL Creatinine (0.8-1.5) mg/dl Est GFR ( Amer) Est GFR (Non-Af Amer) POC Glucose (mg/dL) (65-110) mg/dL Random Glucose (70-110) mg/dL Calcium (8.4-10.5) mg/dL Phosphorus (2.5-4.5) mg/dL Magnesium (1.7-2.2) mg/dL Iron (45-180) ug/dL TIBC (261-462) ug/dL % Saturation (20-55) % Total Bilirubin (0.2-1.3) mg/dL AST (17-59) U/L ALT (7-56) U/L Alkaline Phosphatase (38-126) U/L Lactate Dehydrogenase (333-699) U/L Total Creatine Kinase (35-230) U/L Troponin I 0.02 D ng/mL NT-Pro-B Natriuret Pep (0-450) pg/mL Total Protein (5.8-8.3) g/dL Albumin (3.0-4.8) g/dL Globulin gm/dL Albumin/Globulin Ratio (1.1-1.8) Lipase (23-300) U/L Venous Blood Potassium 3.4 L (3.6-5.2) mmol/L Urine Color (YELLOW) Urine Appearance (CLEAR) Urine pH (4.7-8.0) Ur Specific Burson (1.005-1.035) Urine Protein (<30 mg/dL) mg/dL Urine Glucose (UA) (NEGATIVE) mg/dL Urine Ketones (NEGATIVE) mg/dL Urine Blood (NEGATIVE) Urine Nitrate (NEGATIVE) Urine Bilirubin (NEGATIVE) Urine Urobilinogen (<1 E.U./dL) E.U./dL Ur Leukocyte Esterase (NEGATIVE) Coleen/uL Influenza Typ A,B (EIA) (NEGATIVE) Blood Type Antibody Screen BBK History Checked 04/25/18 04/25/18 04/25/18 Range/Units 14:30 14:09 14:00 WBC (4.5-11.0) 10^3/uL RBC (3.5-6.1) 10^6/uL Hgb (14.0-18.0) g/dL Hct (42.0-52.0) % MCV (80.0-105.0) fl MCH (25.0-35.0) pg MCHC (31.0-37.0) g/dl RDW (11.5-14.5) % Plt Count (120.0-450.0) 10^3/uL MPV (7.0-11.0) fl Gran % (50.0-68.0) % Lymph % (Auto) (22.0-35.0) % Polk % (Auto) (1.0-6.0) % Eos % (Auto) (1.5-5.0) % Baso % (Auto) (0.0-3.0) % Gran # (1.4-6.5) Lymph # (Auto) (1.2-3.4) Polk # (Auto) (0.1-0.6) Eos # (Auto) (0.0-0.7) Baso # (Auto) (0.0-2.0) K/mm3 PT (9.4-12.5) SECONDS INR APTT (25.1-36.5) Seconds pCO2 34 L (35-45) mm/Hg pO2 70 H 53.0 L (80-100) mm/Hg HCO3 22.1 (21-28) mmol/L ABG pH 7.42 (7.35-7.45) ABG Total CO2 23.1 (22-28) mmol.L ABG O2 Saturation 91.5 L (95-98) % ABG O2 Content 14.2 L (15-23) ML/dl ABG Base Excess -1.9 (-2.0-3.0) mmol/L ABG Hemoglobin 11.3 L (11.7-17.4) g/dL ABG Carboxyhemoglobin 1.9 H (0.5-1.5) % POC ABG HHb (Measured) 8.3 H (0-5) % ABG Methemoglobin 0.7 (0.0-3.0) % ABG O2 Capacity 15.5 L (16-24) mL/dl VBG pH 7.35 (7.32-7.43) VBG pCO2 44.0 (40-60) VBG HCO3 24.3 (21-28) mmol/l VBG Total CO2 25.7 (22-28) mmol.L VBG O2 Sat (Calc) 96.1 H (40-65) % VBG Base Excess -1.5 L (0.0-2.0) mmol/L VBG Potassium 4.0 (3.6-5.2) mmol/L Hgb O2 Saturation 89.1 L (95.0-98.0) % Glucose 185 H (75-110) mg/dl Lactate 2.5 H (0.7-2.1) mmol/L FiO2 21.0 28.0 % Sodium 135.0 (132-148) mmol/L Potassium (3.6-5.0) mmol/L Chloride 102.0 (98-107) mmol/L Carbon Dioxide (21-33) mmol/L Anion Gap (10-20) BUN (7-21) mg/dL Creatinine (0.8-1.5) mg/dl Est GFR ( Amer) Est GFR (Non-Af Amer) POC Glucose (mg/dL) (65-110) mg/dL Random Glucose (70-110) mg/dL Calcium (8.4-10.5) mg/dL Phosphorus (2.5-4.5) mg/dL Magnesium (1.7-2.2) mg/dL Iron (45-180) ug/dL TIBC (261-462) ug/dL % Saturation (20-55) % Total Bilirubin (0.2-1.3) mg/dL AST (17-59) U/L ALT (7-56) U/L Alkaline Phosphatase (38-126) U/L Lactate Dehydrogenase (333-699) U/L Total Creatine Kinase (35-230) U/L Troponin I ng/mL NT-Pro-B Natriuret Pep (0-450) pg/mL Total Protein (5.8-8.3) g/dL Albumin (3.0-4.8) g/dL Globulin gm/dL Albumin/Globulin Ratio (1.1-1.8) Lipase (23-300) U/L Venous Blood Potassium 4.0 (3.6-5.2) mmol/L Urine Color (YELLOW) Urine Appearance (CLEAR) Urine pH (4.7-8.0) Ur Specific Burson (1.005-1.035) Urine Protein (<30 mg/dL) mg/dL Urine Glucose (UA) (NEGATIVE) mg/dL Urine Ketones (NEGATIVE) mg/dL Urine Blood (NEGATIVE) Urine Nitrate (NEGATIVE) Urine Bilirubin (NEGATIVE) Urine Urobilinogen (<1 E.U./dL) E.U./dL Ur Leukocyte Esterase (NEGATIVE) Coleen/uL Influenza Typ A,B (EIA) Negative for flu a/b (NEGATIVE) Blood Type Antibody Screen BBK History Checked 04/25/18 04/25/18 04/25/18 Range/Units 14:00 14:00 14:00 WBC 9.2 (4.5-11.0) 10^3/uL RBC 4.00 (3.5-6.1) 10^6/uL Hgb 12.4 L (14.0-18.0) g/dL Hct 37.2 L (42.0-52.0) % MCV 93.0 (80.0-105.0) fl MCH 31.0 (25.0-35.0) pg MCHC 33.3 (31.0-37.0) g/dl RDW 12.9 (11.5-14.5) % Plt Count 219 (120.0-450.0) 10^3/uL MPV 9.3 (7.0-11.0) fl Gran % 88.3 H (50.0-68.0) % Lymph % (Auto) 7.9 L (22.0-35.0) % Polk % (Auto) 3.4 (1.0-6.0) % Eos % (Auto) 0.3 L (1.5-5.0) % Baso % (Auto) 0.1 (0.0-3.0) % Gran # 8.15 H (1.4-6.5) Lymph # (Auto) 0.7 L (1.2-3.4) Polk # (Auto) 0.3 (0.1-0.6) Eos # (Auto) 0.0 (0.0-0.7) Baso # (Auto) 0.01 (0.0-2.0) K/mm3 PT 16.9 H (9.4-12.5) SECONDS INR 1.47 APTT 25.1 (25.1-36.5) Seconds pCO2 (35-45) mm/Hg pO2 (80-100) mm/Hg HCO3 (21-28) mmol/L ABG pH (7.35-7.45) ABG Total CO2 (22-28) mmol.L ABG O2 Saturation (95-98) % ABG O2 Content (15-23) ML/dl ABG Base Excess (-2.0-3.0) mmol/L ABG Hemoglobin (11.7-17.4) g/dL ABG Carboxyhemoglobin (0.5-1.5) % POC ABG HHb (Measured) (0-5) % ABG Methemoglobin (0.0-3.0) % ABG O2 Capacity (16-24) mL/dl VBG pH (7.32-7.43) VBG pCO2 (40-60) VBG HCO3 (21-28) mmol/l VBG Total CO2 (22-28) mmol.L VBG O2 Sat (Calc) (40-65) % VBG Base Excess (0.0-2.0) mmol/L VBG Potassium (3.6-5.2) mmol/L Hgb O2 Saturation (95.0-98.0) % Glucose (75-110) mg/dl Lactate (0.7-2.1) mmol/L FiO2 % Sodium 136 (132-148) mmol/L Potassium 4.2 (3.6-5.0) mmol/L Chloride 101 (98-107) mmol/L Carbon Dioxide 25 (21-33) mmol/L Anion Gap 14 (10-20) BUN 28 H (7-21) mg/dL Creatinine 1.2 (0.8-1.5) mg/dl Est GFR ( Amer) > 60 Est GFR (Non-Af Amer) 59 POC Glucose (mg/dL) (65-110) mg/dL Random Glucose 187 H (70-110) mg/dL Calcium 9.0 (8.4-10.5) mg/dL Phosphorus 3.8 (2.5-4.5) mg/dL Magnesium 1.8 (1.7-2.2) mg/dL Iron (45-180) ug/dL TIBC (261-462) ug/dL % Saturation (20-55) % Total Bilirubin 0.6 (0.2-1.3) mg/dL AST 26 (17-59) U/L ALT 26 (7-56) U/L Alkaline Phosphatase 75 (38-126) U/L Lactate Dehydrogenase 527 (333-699) U/L Total Creatine Kinase 104 (35-230) U/L Troponin I < 0.01 ng/mL NT-Pro-B Natriuret Pep 112 (0-450) pg/mL Total Protein 7.1 (5.8-8.3) g/dL Albumin 3.7 (3.0-4.8) g/dL Globulin 3.4 gm/dL Albumin/Globulin Ratio 1.1 (1.1-1.8) Lipase 221 (23-300) U/L Venous Blood Potassium (3.6-5.2) mmol/L Urine Color (YELLOW) Urine Appearance (CLEAR) Urine pH (4.7-8.0) Ur Specific Burson (1.005-1.035) Urine Protein (<30 mg/dL) mg/dL Urine Glucose (UA) (NEGATIVE) mg/dL Urine Ketones (NEGATIVE) mg/dL Urine Blood (NEGATIVE) Urine Nitrate (NEGATIVE) Urine Bilirubin (NEGATIVE) Urine Urobilinogen (<1 E.U./dL) E.U./dL Ur Leukocyte Esterase (NEGATIVE) Coleen/uL Influenza Typ A,B (EIA) (NEGATIVE) Blood Type Antibody Screen BBK History Checked 04/25/18 Range/Units 13:30 WBC (4.5-11.0) 10^3/uL RBC (3.5-6.1) 10^6/uL Hgb (14.0-18.0) g/dL Hct (42.0-52.0) % MCV (80.0-105.0) fl MCH (25.0-35.0) pg MCHC (31.0-37.0) g/dl RDW (11.5-14.5) % Plt Count (120.0-450.0) 10^3/uL MPV (7.0-11.0) fl Gran % (50.0-68.0) % Lymph % (Auto) (22.0-35.0) % Polk % (Auto) (1.0-6.0) % Eos % (Auto) (1.5-5.0) % Baso % (Auto) (0.0-3.0) % Gran # (1.4-6.5) Lymph # (Auto) (1.2-3.4) Polk # (Auto) (0.1-0.6) Eos # (Auto) (0.0-0.7) Baso # (Auto) (0.0-2.0) K/mm3 PT (9.4-12.5) SECONDS INR APTT (25.1-36.5) Seconds pCO2 (35-45) mm/Hg pO2 (80-100) mm/Hg HCO3 (21-28) mmol/L ABG pH (7.35-7.45) ABG Total CO2 (22-28) mmol.L ABG O2 Saturation (95-98) % ABG O2 Content (15-23) ML/dl ABG Base Excess (-2.0-3.0) mmol/L ABG Hemoglobin (11.7-17.4) g/dL ABG Carboxyhemoglobin (0.5-1.5) % POC ABG HHb (Measured) (0-5) % ABG Methemoglobin (0.0-3.0) % ABG O2 Capacity (16-24) mL/dl VBG pH (7.32-7.43) VBG pCO2 (40-60) VBG HCO3 (21-28) mmol/l VBG Total CO2 (22-28) mmol.L VBG O2 Sat (Calc) (40-65) % VBG Base Excess (0.0-2.0) mmol/L VBG Potassium (3.6-5.2) mmol/L Hgb O2 Saturation (95.0-98.0) % Glucose (75-110) mg/dl Lactate (0.7-2.1) mmol/L FiO2 % Sodium (132-148) mmol/L Potassium (3.6-5.0) mmol/L Chloride (98-107) mmol/L Carbon Dioxide (21-33) mmol/L Anion Gap (10-20) BUN (7-21) mg/dL Creatinine (0.8-1.5) mg/dl Est GFR ( Amer) Est GFR (Non-Af Amer) POC Glucose (mg/dL) (65-110) mg/dL Random Glucose (70-110) mg/dL Calcium (8.4-10.5) mg/dL Phosphorus (2.5-4.5) mg/dL Magnesium (1.7-2.2) mg/dL Iron (45-180) ug/dL TIBC (261-462) ug/dL % Saturation (20-55) % Total Bilirubin (0.2-1.3) mg/dL AST (17-59) U/L ALT (7-56) U/L Alkaline Phosphatase (38-126) U/L Lactate Dehydrogenase (333-699) U/L Total Creatine Kinase (35-230) U/L Troponin I ng/mL NT-Pro-B Natriuret Pep (0-450) pg/mL Total Protein (5.8-8.3) g/dL Albumin (3.0-4.8) g/dL Globulin gm/dL Albumin/Globulin Ratio (1.1-1.8) Lipase (23-300) U/L Venous Blood Potassium (3.6-5.2) mmol/L Urine Color Yellow (YELLOW) Urine Appearance Clear (CLEAR) Urine pH 6.0 (4.7-8.0) Ur Specific Burson 1.010 (1.005-1.035) Urine Protein Negative (<30 mg/dL) mg/dL Urine Glucose (UA) Negative (NEGATIVE) mg/dL Urine Ketones Negative (NEGATIVE) mg/dL Urine Blood Negative (NEGATIVE) Urine Nitrate Negative (NEGATIVE) Urine Bilirubin Negative (NEGATIVE) Urine Urobilinogen 0.2 (<1 E.U./dL) E.U./dL Ur Leukocyte Esterase Negative (NEGATIVE) Coleen/uL Influenza Typ A,B (EIA) (NEGATIVE) Blood Type Antibody Screen BBK History Checked Laboratory Results - last 24 hr 04/25/18 04/25/18 04/25/18 13:30 14:00 14:00 WBC 9.2 RBC 4.00 Hgb 12.4 L Hct 37.2 L MCV 93.0 MCH 31.0 MCHC 33.3 RDW 12.9 Plt Count 219 MPV 9.3 Gran % 88.3 H Lymph % (Auto) 7.9 L Polk % (Auto) 3.4 Eos % (Auto) 0.3 L Baso % (Auto) 0.1 Gran # 8.15 H Lymph # (Auto) 0.7 L Polk # (Auto) 0.3 Eos # (Auto) 0.0 Baso # (Auto) 0.01 PT 16.9 H INR 1.47 APTT 25.1 pCO2 pO2 HCO3 ABG pH ABG Total CO2 ABG O2 Saturation ABG O2 Content ABG Base Excess ABG Hemoglobin ABG Carboxyhemoglobin POC ABG HHb (Measured) ABG Methemoglobin ABG O2 Capacity VBG pH VBG pCO2 VBG HCO3 VBG Total CO2 VBG O2 Sat (Calc) VBG Base Excess VBG Potassium Hgb O2 Saturation Glucose Lactate FiO2 Sodium Potassium Chloride Carbon Dioxide Anion Gap BUN Creatinine Est GFR ( Amer) Est GFR (Non-Af Amer) POC Glucose (mg/dL) Random Glucose Calcium Phosphorus Magnesium Iron TIBC % Saturation Total Bilirubin AST ALT Alkaline Phosphatase Lactate Dehydrogenase Total Creatine Kinase Troponin I NT-Pro-B Natriuret Pep Total Protein Albumin Globulin Albumin/Globulin Ratio Lipase Venous Blood Potassium Urine Color Yellow Urine Appearance Clear Urine pH 6.0 Ur Specific Burson 1.010 Urine Protein Negative Urine Glucose (UA) Negative Urine Ketones Negative Urine Blood Negative Urine Nitrate Negative Urine Bilirubin Negative Urine Urobilinogen 0.2 Ur Leukocyte Esterase Negative Influenza Typ A,B (EIA) Blood Type Antibody Screen BBK History Checked 04/25/18 04/25/18 04/25/18 14:00 14:00 14:09 WBC RBC Hgb Hct MCV MCH MCHC RDW Plt Count MPV Gran % Lymph % (Auto) Polk % (Auto) Eos % (Auto) Baso % (Auto) Gran # Lymph # (Auto) Polk # (Auto) Eos # (Auto) Baso # (Auto) PT INR APTT pCO2 34 L pO2 53.0 L HCO3 22.1 ABG pH 7.42 ABG Total CO2 23.1 ABG O2 Saturation 91.5 L ABG O2 Content 14.2 L ABG Base Excess -1.9 ABG Hemoglobin 11.3 L ABG Carboxyhemoglobin 1.9 H POC ABG HHb (Measured) 8.3 H ABG Methemoglobin 0.7 ABG O2 Capacity 15.5 L VBG pH VBG pCO2 VBG HCO3 VBG Total CO2 VBG O2 Sat (Calc) VBG Base Excess VBG Potassium Hgb O2 Saturation 89.1 L Glucose Lactate FiO2 28.0 Sodium 136 Potassium 4.2 Chloride 101 Carbon Dioxide 25 Anion Gap 14 BUN 28 H Creatinine 1.2 Est GFR ( Amer) > 60 Est GFR (Non-Af Amer) 59 POC Glucose (mg/dL) Random Glucose 187 H Calcium 9.0 Phosphorus 3.8 Magnesium 1.8 Iron TIBC % Saturation Total Bilirubin 0.6 AST 26 ALT 26 Alkaline Phosphatase 75 Lactate Dehydrogenase 527 Total Creatine Kinase 104 Troponin I < 0.01 NT-Pro-B Natriuret Pep 112 Total Protein 7.1 Albumin 3.7 Globulin 3.4 Albumin/Globulin Ratio 1.1 Lipase 221 Venous Blood Potassium Urine Color Urine Appearance Urine pH Ur Specific Burson Urine Protein Urine Glucose (UA) Urine Ketones Urine Blood Urine Nitrate Urine Bilirubin Urine Urobilinogen Ur Leukocyte Esterase Influenza Typ A,B (EIA) Negative for flu a/b Blood Type Antibody Screen BBK History Checked 04/25/18 04/25/18 04/25/18 14:30 18:03 21:15 WBC RBC Hgb 10.6 L Hct MCV MCH MCHC RDW Plt Count MPV Gran % Lymph % (Auto) Polk % (Auto) Eos % (Auto) Baso % (Auto) Gran # Lymph # (Auto) Polk # (Auto) Eos # (Auto) Baso # (Auto) PT INR APTT pCO2 pO2 70 H 217 H HCO3 ABG pH ABG Total CO2 ABG O2 Saturation ABG O2 Content ABG Base Excess ABG Hemoglobin ABG Carboxyhemoglobin POC ABG HHb (Measured) ABG Methemoglobin ABG O2 Capacity VBG pH 7.35 7.33 VBG pCO2 44.0 41.0 VBG HCO3 24.3 21.6 VBG Total CO2 25.7 22.9 VBG O2 Sat (Calc) 96.1 H 99.7 H VBG Base Excess -1.5 L -4.1 L VBG Potassium 4.0 3.4 L Hgb O2 Saturation Glucose 185 H 137 H Lactate 2.5 H 1.3 FiO2 21.0 21.0 Sodium 135.0 138.0 Potassium Chloride 102.0 109.0 H Carbon Dioxide Anion Gap BUN Creatinine Est GFR ( Amer) Est GFR (Non-Af Amer) POC Glucose (mg/dL) Random Glucose Calcium Phosphorus Magnesium Iron TIBC % Saturation Total Bilirubin AST ALT Alkaline Phosphatase Lactate Dehydrogenase Total Creatine Kinase Troponin I NT-Pro-B Natriuret Pep Total Protein Albumin Globulin Albumin/Globulin Ratio Lipase Venous Blood Potassium 4.0 3.4 L Urine Color Urine Appearance Urine pH Ur Specific Burson Urine Protein Urine Glucose (UA) Urine Ketones Urine Blood Urine Nitrate Urine Bilirubin Urine Urobilinogen Ur Leukocyte Esterase Influenza Typ A,B (EIA) Blood Type Antibody Screen BBK History Checked 04/25/18 04/26/18 04/26/18 21:15 00:13 01:30 WBC RBC Hgb Hct MCV MCH MCHC RDW Plt Count MPV Gran % Lymph % (Auto) Polk % (Auto) Eos % (Auto) Baso % (Auto) Gran # Lymph # (Auto) [place]k # (Auto) Eos # (Auto) Baso # (Auto) PT INR APTT pCO2 pO2 HCO3 ABG pH ABG Total CO2 ABG O2 Saturation ABG O2 Content ABG Base Excess ABG Hemoglobin ABG Carboxyhemoglobin POC ABG HHb (Measured) ABG Methemoglobin ABG O2 Capacity VBG pH VBG pCO2 VBG HCO3 VBG Total CO2 VBG O2 Sat (Calc) VBG Base Excess VBG Potassium Hgb O2 Saturation Glucose Lactate FiO2 Sodium Potassium Chloride Carbon Dioxide Anion Gap BUN Creatinine Est GFR ( Amer) Est GFR (Non-Af Amer) POC Glucose (mg/dL) 123 H Random Glucose Calcium Phosphorus Magnesium Iron TIBC % Saturation Total Bilirubin AST ALT Alkaline Phosphatase Lactate Dehydrogenase Total Creatine Kinase Troponin I 0.02 D NT-Pro-B Natriuret Pep Total Protein Albumin Globulin Albumin/Globulin Ratio Lipase Venous Blood Potassium Urine Color Urine Appearance Urine pH Ur Specific Burson Urine Protein Urine Glucose (UA) Urine Ketones Urine Blood Urine Nitrate Urine Bilirubin Urine Urobilinogen Ur Leukocyte Esterase Influenza Typ A,B (EIA) Blood Type B POSITIVE Antibody Screen Negative BBK History Checked No verified bt 04/26/18 04/26/18 04/26/18 06:45 06:45 06:45 WBC 16.7 H D RBC 3.20 L Hgb 9.9 L Hct 30.1 L MCV 94.1 MCH 30.9 MCHC 32.9 RDW 13.1 Plt Count 173 MPV 8.8 Gran % 81.5 H Lymph % (Auto) 9.8 L [place]k % (Auto) 8.1 H Eos % (Auto) 0.5 L Baso % (Auto) 0.1 Gran # 13.57 H Lymph # (Auto) 1.6 Polk # (Auto) 1.4 H Eos # (Auto) 0.1 Baso # (Auto) 0.02 PT INR APTT pCO2 pO2 HCO3 ABG pH ABG Total CO2 ABG O2 Saturation ABG O2 Content ABG Base Excess ABG Hemoglobin ABG Carboxyhemoglobin POC ABG HHb (Measured) ABG Methemoglobin ABG O2 Capacity VBG pH VBG pCO2 VBG HCO3 VBG Total CO2 VBG O2 Sat (Calc) VBG Base Excess VBG Potassium Hgb O2 Saturation Glucose Lactate FiO2 Sodium 140 Potassium Chloride 114 H Carbon Dioxide 23 Anion Gap BUN 16 Creatinine 1.1 Est GFR ( Amer) > 60 Est GFR (Non-Af Amer) > 60 POC Glucose (mg/dL) Random Glucose 57 L Calcium 7.6 L Phosphorus 1.9 L Magnesium 1.8 Iron 16 L TIBC 262 % Saturation 6 L Total Bilirubin 0.5 AST 20 ALT 29 Alkaline Phosphatase 53 Lactate Dehydrogenase Total Creatine Kinase Troponin I 0.02 NT-Pro-B Natriuret Pep Total Protein 5.6 L Albumin 2.7 L Globulin 2.9 Albumin/Globulin Ratio 0.9 L Lipase Venous Blood Potassium Urine Color Urine Appearance Urine pH Ur Specific Burson Urine Protein Urine Glucose (UA) Urine Ketones Urine Blood Urine Nitrate Urine Bilirubin Urine Urobilinogen Ur Leukocyte Esterase Influenza Typ A,B (EIA) Blood Type Antibody Screen BBK History Checked 04/26/18 06:54 WBC RBC Hgb Hct MCV MCH MCHC RDW Plt Count MPV Gran % Lymph % (Auto) [place]k % (Auto) Eos % (Auto) Baso % (Auto) Gran # Lymph # (Auto) [place]k # (Auto) Eos # (Auto) Baso # (Auto) PT INR APTT pCO2 pO2 HCO3 ABG pH ABG Total CO2 ABG O2 Saturation ABG O2 Content ABG Base Excess ABG Hemoglobin ABG Carboxyhemoglobin POC ABG HHb (Measured) ABG Methemoglobin ABG O2 Capacity VBG pH VBG pCO2 VBG HCO3 VBG Total CO2 VBG O2 Sat (Calc) VBG Base Excess VBG Potassium Hgb O2 Saturation Glucose Lactate FiO2 Sodium Potassium Chloride Carbon Dioxide Anion Gap BUN Creatinine Est GFR ( Amer) Est GFR (Non-Af Amer) POC Glucose (mg/dL) 44 L Random Glucose Calcium Phosphorus Magnesium Iron TIBC % Saturation Total Bilirubin AST ALT Alkaline Phosphatase Lactate Dehydrogenase Total Creatine Kinase Troponin I NT-Pro-B Natriuret Pep Total Protein Albumin Globulin Albumin/Globulin Ratio Lipase Venous Blood Potassium Urine Color Urine Appearance Urine pH Ur Specific [place] Urine Protein Urine Glucose (UA) Urine Ketones Urine Blood Urine Nitrate Urine Bilirubin Urine Urobilinogen Ur Leukocyte Esterase Influenza Typ A,B (EIA) Blood Type Antibody Screen BBK History Checked EKG/Cardiology Studies: Cardiology / EKG Studies 04/25/18 13:36 ELECTROCARDIOGRAM Stat Comment: pneumonia Reason For Exam: [email or web address] Fingerstick Blood Sugar Results: 123 Critical Care Progress Note - Nutrition Nutrition: Nutrition Category Date Time Status NPO Diet [DIET] Diets 04/25/18 Breakfast Ordered Assessment/Plan - Assessment and Plan (Free Text) Assessment: 78 y/o male with PMH of HTN, HLD, DM2, COPD and esophagitis admitted to ICU for observation after one episode of hematemesis s/p EGD. Doing well, vitals stable, afebrile Plan: Neuro: -AAOx3, in NAD -maintain normothermia CVS: -hypotensive at admission, responded to IVF -Hold anti HTN meds -troponin negative x3 -maintain MAP >65 GI: -EGD 04/25: esophagitis with normal appearances of the stomach and duodenum -Protonix drip switched to PO -Reglan 5mg IVP Q6 -diet advanced to solid, carb consistent -abd U/S to r/o biliary/hepatic pathology. read pending -GI following Resp: -Chest X-Ray showed patchy LLL infiltrate. -PNA: likely community acquired vs aspiration -flu a/b negative -supp O2 prn -maintain O2 sat >90% -pulmononlogy following Heme: -H/H dropped from 12.4/37.2 to 9.9/30.1 -continue monitoring H/H with serial CBC -PT/INR 16.9/1.47 -patient asymptomatic, no signs of bleeding -h/o chronic anemia -low iron at 17, MCV 94.1 -TIBC, SAT pending -type and Screen ID: -leukocytosis 16.7 -febrile at admission. afebrile today -continue Ofirmev 1000mg IVPB PRN for fevers -Procalcitonin, Legionella serology -blood, urine, sputum cultures pending -continue IV Vancomycin and Zosyn -ID following Renal/: -BUN/Cr wnl -I/O 2090/800 -d/c IVF -UA negative -maintain euvolemia Endo: -h/o DM2, on oral meds -accucheck q6h -ISS-Low -maintain euglycemia Prophylaxis: -GI ppx: Pantoprazole 40 -DVT ppx: Dispo: Patient is hemodynamically stable, afebrile, normotensive. Will be transferred to med/surg today Case reviewed and plan discussed with Dr. Schaeffer <Ricky Schaeffer - Last Filed: 04/26/18 15:09> CCU Objective - Vital Signs / Intake & Output Vital Signs (Last 4 hours): Vital Signs Pulse Resp Pulse Ox 04/26/18 11:50 87 24 100 04/26/18 11:40 89 23 99 04/26/18 11:30 89 21 100 04/26/18 11:20 84 21 100 04/26/18 11:10 87 23 100 Intake and Output (Last 8hrs): Intake & Output 12/06/18 12/06/18 12/06/18 06:59 14:59 22:59 Intake Total 2089 Output Total 800 Balance 1290 Intake: IV 2089 Right Forearm 2089 Output: Urine 800 Urine, Voided 800 Other: # Bowel Movements 1 - Medications Active Medications: Active Medications Generic Name Dose Route Start Last Admin Trade Name Freq PRN Reason Stop Dose Admin Acetylcysteine 3 ml 04/26/18 18:00 Acetylcysteine 20% PO BID MARYBETH Arformoterol Tartrate 15 mcg 04/26/18 20:00 Brovana IH [id number] MARYBETH Budesonide 0.5 mg 04/26/18 20:00 Pulmicort Respules IH [id number] MARYBETH Acetaminophen 1,000 mg in 100 mls @ 400 mls/hr 04/25/18 19:37 Ofirmev IVPB 04/27/18 19:38 Q6H PRN Temperature >100.4 Vancomycin HCl 1 gm in 250 mls @ 167 mls/hr 04/25/18 19:45 04/26/18 08:26 Vancomycin 1gm IVPB 167 mls/hr Q12H MARYBETH Administration Protocol Piperacillin Sod/Tazobactam Sod 100 mls @ 25 mls/hr 04/26/18 10:45 Zosyn 3.375 In Ns 100ml IVPB Q8 [facility] Protocol Insulin Human Regular 0 units 04/26/18 00:00 04/26/18 06:00 Humulin R Low SC Not Given Q6 [facility] Protocol Methylprednisolone 20 mg 04/26/18 14:00 Solu-Medrol IVP Q8 MARYBETH Metoclopramide HCl 5 mg 04/25/18 22:00 04/26/18 03:46 Reglan IVP 04/26/18 22:01 5 mg Q6H MARYBETH Administration Pantoprazole Sodium 40 mg 04/26/18 16:00 Protonix Ec Tab PO 0600,1600 [facility] - Patient Studies Lab Studies: Microbiology Studies 04/25/18 14:00 Blood Culture - Preliminary Blood-Venous NO GROWTH AFTER 24 HOURS Lab Studies 04/26/18 04/26/18 04/26/18 Range/Units 10:21 08:41 06:58 WBC (4.5-11.0) 10^3/uL RBC (3.5-6.1) 10^6/uL Hgb (14.0-18.0) g/dL Hct (42.0-52.0) % MCV (80.0-105.0) fl MCH (25.0-35.0) pg MCHC (31.0-37.0) g/dl RDW (11.5-14.5) % Plt Count (120.0-450.0) 10^3/uL MPV (7.0-11.0) fl Gran % (50.0-68.0) % Lymph % (Auto) (22.0-35.0) % [place]k % (Auto) (1.0-6.0) % Eos % (Auto) (1.5-5.0) % Baso % (Auto) (0.0-3.0) % Gran # (1.4-6.5) Lymph # (Auto) (1.2-3.4) [place]k # (Auto) (0.1-0.6) Eos # (Auto) (0.0-0.7) Baso # (Auto) (0.0-2.0) K/mm3 pO2 (30-55) mm/Hg VBG pH (7.32-7.43) VBG pCO2 (40-60) VBG HCO3 (21-28) mmol/l VBG Total CO2 (22-28) mmol.L VBG O2 Sat (Calc) (40-65) % VBG Base Excess (0.0-2.0) mmol/L VBG Potassium (3.6-5.2) mmol/L Sodium (132-148) mmol/L Chloride (98-107) mmol/L Glucose (75-110) mg/dl Lactate (0.7-2.1) mmol/L FiO2 % Potassium (3.6-5.0) mmol/L Carbon Dioxide (21-33) mmol/L Anion Gap (10-20) BUN (7-21) mg/dL Creatinine (0.8-1.5) mg/dl Est GFR ( Amer) Est GFR (Non-Af Amer) POC Glucose (mg/dL) 122 H 46 L (65-110) mg/dL Random Glucose (70-110) mg/dL Calcium (8.4-10.5) mg/dL Phosphorus (2.5-4.5) mg/dL Magnesium (1.7-2.2) mg/dL Iron (45-180) ug/dL TIBC (261-462) ug/dL % Saturation (20-55) % Total Bilirubin (0.2-1.3) mg/dL AST (17-59) U/L ALT (7-56) U/L Alkaline Phosphatase (38-126) U/L Troponin I ng/mL Total Protein (5.8-8.3) g/dL Albumin (3.0-4.8) g/dL Globulin gm/dL Albumin/Globulin Ratio (1.1-1.8) Amylase 53 (35-125) U/L Lipase 42 (23-300) U/L Vitamin B12 (239-931) pg/mL Folate ng/mL Procalcitonin (0.19-0.49) NG/ML Venous Blood Potassium (3.6-5.2) mmol/L Ur L.pneumophila Ag (NEGATIVE) Blood Type Blood Type Confirm Antibody Screen BBK History Checked 04/26/18 04/26/18 04/26/18 Range/Units 06:54 06:45 06:45 WBC (4.5-11.0) 10^3/uL RBC (3.5-6.1) 10^6/uL Hgb (14.0-18.0) g/dL Hct (42.0-52.0) % MCV (80.0-105.0) fl MCH (25.0-35.0) pg MCHC (31.0-37.0) g/dl RDW (11.5-14.5) % Plt Count (120.0-450.0) 10^3/uL MPV (7.0-11.0) fl Gran % (50.0-68.0) % Lymph % (Auto) (22.0-35.0) % [place]k % (Auto) (1.0-6.0) % Eos % (Auto) (1.5-5.0) % Baso % (Auto) (0.0-3.0) % Gran # (1.4-6.5) Lymph # (Auto) (1.2-3.4) [place]k # (Auto) (0.1-0.6) Eos # (Auto) (0.0-0.7) Baso # (Auto) (0.0-2.0) K/mm3 pO2 (30-55) mm/Hg VBG pH (7.32-7.43) VBG pCO2 (40-60) VBG HCO3 (21-28) mmol/l VBG Total CO2 (22-28) mmol.L VBG O2 Sat (Calc) (40-65) % VBG Base Excess (0.0-2.0) mmol/L VBG Potassium (3.6-5.2) mmol/L Sodium (132-148) mmol/L Chloride (98-107) mmol/L Glucose (75-110) mg/dl Lactate (0.7-2.1) mmol/L FiO2 % Potassium (3.6-5.0) mmol/L Carbon Dioxide (21-33) mmol/L Anion Gap (10-20) BUN (7-21) mg/dL Creatinine (0.8-1.5) mg/dl Est GFR ( Amer) Est GFR (Non-Af Amer) POC Glucose (mg/dL) 44 L (65-110) mg/dL Random Glucose (70-110) mg/dL Calcium (8.4-10.5) mg/dL Phosphorus (2.5-4.5) mg/dL Magnesium (1.7-2.2) mg/dL Iron (45-180) ug/dL TIBC (261-462) ug/dL % Saturation (20-55) % Total Bilirubin (0.2-1.3) mg/dL AST (17-59) U/L ALT (7-56) U/L Alkaline Phosphatase (38-126) U/L Troponin I ng/mL Total Protein (5.8-8.3) g/dL Albumin (3.0-4.8) g/dL Globulin gm/dL Albumin/Globulin Ratio (1.1-1.8) Amylase (35-125) U/L Lipase (23-300) U/L Vitamin B12 449 (239-931) pg/mL Folate 11.0 ng/mL Procalcitonin (0.19-0.49) NG/ML Venous Blood Potassium (3.6-5.2) mmol/L Ur L.pneumophila Ag (NEGATIVE) Blood Type Blood Type Confirm B POSITIVE Antibody Screen BBK History Checked 04/26/18 04/26/18 04/26/18 Range/Units 06:45 06:45 06:45 WBC 16.7 H D (4.5-11.0) 10^3/uL RBC 3.20 L (3.5-6.1) 10^6/uL Hgb 9.9 L (14.0-18.0) g/dL Hct 30.1 L (42.0-52.0) % MCV 94.1 (80.0-105.0) fl MCH 30.9 (25.0-35.0) pg MCHC 32.9 (31.0-37.0) g/dl RDW 13.1 (11.5-14.5) % Plt Count 173 (120.0-450.0) 10^3/uL MPV 8.8 (7.0-11.0) fl Gran % 81.5 H (50.0-68.0) % Lymph % (Auto) 9.8 L (22.0-35.0) % [place]k % (Auto) 8.1 H (1.0-6.0) % Eos % (Auto) 0.5 L (1.5-5.0) % Baso % (Auto) 0.1 (0.0-3.0) % Gran # 13.57 H (1.4-6.5) Lymph # (Auto) 1.6 (1.2-3.4) [place]k # (Auto) 1.4 H (0.1-0.6) Eos # (Auto) 0.1 (0.0-0.7) Baso # (Auto) 0.02 (0.0-2.0) K/mm3 pO2 (30-55) mm/Hg VBG pH (7.32-7.43) VBG pCO2 (40-60) VBG HCO3 (21-28) mmol/l VBG Total CO2 (22-28) mmol.L VBG O2 Sat (Calc) (40-65) % VBG Base Excess (0.0-2.0) mmol/L VBG Potassium (3.6-5.2) mmol/L Sodium 140 (132-148) mmol/L Chloride 114 H (98-107) mmol/L Glucose (75-110) mg/dl Lactate (0.7-2.1) mmol/L FiO2 % Potassium 3.6 (3.6-5.0) mmol/L Carbon Dioxide 23 (21-33) mmol/L Anion Gap 7 L (10-20) BUN 16 (7-21) mg/dL Creatinine 1.1 (0.8-1.5) mg/dl Est GFR ( Amer) > 60 Est GFR (Non-Af Amer) > 60 POC Glucose (mg/dL) (65-110) mg/dL Random Glucose 57 L (70-110) mg/dL Calcium 7.6 L (8.4-10.5) mg/dL Phosphorus 1.9 L (2.5-4.5) mg/dL Magnesium 1.8 (1.7-2.2) mg/dL Iron 16 L (45-180) ug/dL TIBC 262 (261-462) ug/dL % Saturation 6 L (20-55) % Total Bilirubin 0.5 (0.2-1.3) mg/dL AST 20 (17-59) U/L ALT 29 (7-56) U/L Alkaline Phosphatase 53 (38-126) U/L Troponin I 0.02 ng/mL Total Protein 5.6 L (5.8-8.3) g/dL Albumin 2.7 L (3.0-4.8) g/dL Globulin 2.9 gm/dL Albumin/Globulin Ratio 0.9 L (1.1-1.8) Amylase (35-125) U/L Lipase (23-300) U/L Vitamin B12 (239-931) pg/mL Folate ng/mL Procalcitonin (0.19-0.49) NG/ML Venous Blood Potassium (3.6-5.2) mmol/L Ur L.pneumophila Ag (NEGATIVE) Blood Type Blood Type Confirm Antibody Screen BBK History Checked 04/26/18 04/26/18 04/26/18 Range/Units 01:30 01:30 01:00 WBC (4.5-11.0) 10^3/uL RBC (3.5-6.1) 10^6/uL Hgb (14.0-18.0) g/dL Hct (42.0-52.0) % MCV (80.0-105.0) fl MCH (25.0-35.0) pg MCHC (31.0-37.0) g/dl RDW (11.5-14.5) % Plt Count (120.0-450.0) 10^3/uL MPV (7.0-11.0) fl Gran % (50.0-68.0) % Lymph % (Auto) (22.0-35.0) % [place]k % (Auto) (1.0-6.0) % Eos % (Auto) (1.5-5.0) % Baso % (Auto) (0.0-3.0) % Gran # (1.4-6.5) Lymph # (Auto) (1.2-3.4) [place]k # (Auto) (0.1-0.6) Eos # (Auto) (0.0-0.7) Baso # (Auto) (0.0-2.0) K/mm3 pO2 (30-55) mm/Hg VBG pH (7.32-7.43) VBG pCO2 (40-60) VBG HCO3 (21-28) mmol/l VBG Total CO2 (22-28) mmol.L VBG O2 Sat (Calc) (40-65) % VBG Base Excess (0.0-2.0) mmol/L VBG Potassium (3.6-5.2) mmol/L Sodium (132-148) mmol/L Chloride (98-107) mmol/L Glucose (75-110) mg/dl Lactate (0.7-2.1) mmol/L FiO2 % Potassium (3.6-5.0) mmol/L Carbon Dioxide (21-33) mmol/L Anion Gap (10-20) BUN (7-21) mg/dL Creatinine (0.8-1.5) mg/dl Est GFR ( Amer) Est GFR (Non-Af Amer) POC Glucose (mg/dL) (65-110) mg/dL Random Glucose (70-110) mg/dL Calcium (8.4-10.5) mg/dL Phosphorus (2.5-4.5) mg/dL Magnesium (1.7-2.2) mg/dL Iron (45-180) ug/dL TIBC (261-462) ug/dL % Saturation (20-55) % Total Bilirubin (0.2-1.3) mg/dL AST (17-59) U/L ALT (7-56) U/L Alkaline Phosphatase (38-126) U/L Troponin I ng/mL Total Protein (5.8-8.3) g/dL Albumin (3.0-4.8) g/dL Globulin gm/dL Albumin/Globulin Ratio (1.1-1.8) Amylase (35-125) U/L Lipase (23-300) U/L Vitamin B12 (239-931) pg/mL Folate ng/mL Procalcitonin 14.67 H (0.19-0.49) NG/ML Venous Blood Potassium (3.6-5.2) mmol/L Ur L.pneumophila Ag Negative (NEGATIVE) Blood Type B POSITIVE Blood Type Confirm Antibody Screen Negative BBK History Checked No verified bt 04/26/18 04/25/18 04/25/18 Range/Units 00:13 21:15 21:15 WBC (4.5-11.0) 10^3/uL RBC (3.5-6.1) 10^6/uL Hgb 10.6 L (14.0-18.0) g/dL Hct (42.0-52.0) % MCV (80.0-105.0) fl MCH (25.0-35.0) pg MCHC (31.0-37.0) g/dl RDW (11.5-14.5) % Plt Count (120.0-450.0) 10^3/uL MPV (7.0-11.0) fl Gran % (50.0-68.0) % Lymph % (Auto) (22.0-35.0) % [place] % (Auto) (1.0-6.0) % Eos % (Auto) (1.5-5.0) % Baso % (Auto) (0.0-3.0) % Gran # (1.4-6.5) Lymph # (Auto) (1.2-3.4) [place]k # (Auto) (0.1-0.6) Eos # (Auto) (0.0-0.7) Baso # (Auto) (0.0-2.0) K/mm3 pO2 (30-55) mm/Hg VBG pH (7.32-7.43) VBG pCO2 (40-60) VBG HCO3 (21-28) mmol/l VBG Total CO2 (22-28) mmol.L VBG O2 Sat (Calc) (40-65) % VBG Base Excess (0.0-2.0) mmol/L VBG Potassium (3.6-5.2) mmol/L Sodium (132-148) mmol/L Chloride (98-107) mmol/L Glucose (75-110) mg/dl Lactate (0.7-2.1) mmol/L FiO2 % Potassium (3.6-5.0) mmol/L Carbon Dioxide (21-33) mmol/L Anion Gap (10-20) BUN (7-21) mg/dL Creatinine (0.8-1.5) mg/dl Est GFR ( Amer) Est GFR (Non-Af Amer) POC Glucose (mg/dL) 123 H (65-110) mg/dL Random Glucose (70-110) mg/dL Calcium (8.4-10.5) mg/dL Phosphorus (2.5-4.5) mg/dL Magnesium (1.7-2.2) mg/dL Iron (45-180) ug/dL TIBC (261-462) ug/dL % Saturation (20-55) % Total Bilirubin (0.2-1.3) mg/dL AST (17-59) U/L ALT (7-56) U/L Alkaline Phosphatase (38-126) U/L Troponin I 0.02 D ng/mL Total Protein (5.8-8.3) g/dL Albumin (3.0-4.8) g/dL Globulin gm/dL Albumin/Globulin Ratio (1.1-1.8) Amylase (35-125) U/L Lipase (23-300) U/L Vitamin B12 (239-931) pg/mL Folate ng/mL Procalcitonin (0.19-0.49) NG/ML Venous Blood Potassium (3.6-5.2) mmol/L Ur L.pneumophila Ag (NEGATIVE) Blood Type Blood Type Confirm Antibody Screen BBK History Checked 04/25/18 04/25/18 Range/Units 18:03 17:00 WBC (4.5-11.0) 10^3/uL RBC (3.5-6.1) 10^6/uL Hgb (14.0-18.0) g/dL Hct (42.0-52.0) % MCV (80.0-105.0) fl MCH (25.0-35.0) pg MCHC (31.0-37.0) g/dl RDW (11.5-14.5) % Plt Count (120.0-450.0) 10^3/uL MPV (7.0-11.0) fl Gran % (50.0-68.0) % Lymph % (Auto) (22.0-35.0) % [place]k % (Auto) (1.0-6.0) % Eos % (Auto) (1.5-5.0) % Baso % (Auto) (0.0-3.0) % Gran # (1.4-6.5) Lymph # (Auto) (1.2-3.4) [place]k # (Auto) (0.1-0.6) Eos # (Auto) (0.0-0.7) Baso # (Auto) (0.0-2.0) K/mm3 pO2 217 H (30-55) mm/Hg VBG pH 7.33 (7.32-7.43) VBG pCO2 41.0 (40-60) VBG HCO3 21.6 (21-28) mmol/l VBG Total CO2 22.9 (22-28) mmol.L VBG O2 Sat (Calc) 99.7 H (40-65) % VBG Base Excess -4.1 L (0.0-2.0) mmol/L VBG Potassium 3.4 L (3.6-5.2) mmol/L Sodium 138.0 (132-148) mmol/L Chloride 109.0 H (98-107) mmol/L Glucose 137 H (75-110) mg/dl Lactate 1.3 (0.7-2.1) mmol/L FiO2 21.0 % Potassium (3.6-5.0) mmol/L Carbon Dioxide (21-33) mmol/L Anion Gap (10-20) BUN (7-21) mg/dL Creatinine (0.8-1.5) mg/dl Est GFR ( Amer) Est GFR (Non-Af Amer) POC Glucose (mg/dL) (65-110) mg/dL Random Glucose (70-110) mg/dL Calcium (8.4-10.5) mg/dL Phosphorus (2.5-4.5) mg/dL Magnesium (1.7-2.2) mg/dL Iron (45-180) ug/dL TIBC (261-462) ug/dL % Saturation (20-55) % Total Bilirubin (0.2-1.3) mg/dL AST (17-59) U/L ALT (7-56) U/L Alkaline Phosphatase (38-126) U/L Troponin I ng/mL Total Protein (5.8-8.3) g/dL Albumin (3.0-4.8) g/dL Globulin gm/dL Albumin/Globulin Ratio (1.1-1.8) Amylase (35-125) U/L Lipase (23-300) U/L Vitamin B12 (239-931) pg/mL Folate ng/mL Procalcitonin 0.18 L (0.19-0.49) NG/ML Venous Blood Potassium 3.4 L (3.6-5.2) mmol/L Ur L.pneumophila Ag (NEGATIVE) Blood Type Blood Type Confirm Antibody Screen BBK History Checked Laboratory Results - last 24 hr 04/25/18 04/25/18 04/25/18 17:00 18:03 21:15 WBC RBC Hgb 10.6 L Hct MCV MCH MCHC RDW Plt Count MPV Gran % Lymph % (Auto) [place]k % (Auto) Eos % (Auto) Baso % (Auto) Gran # Lymph # (Auto) [place]k # (Auto) Eos # (Auto) Baso # (Auto) pO2 217 H VBG pH 7.33 VBG pCO2 41.0 VBG HCO3 21.6 VBG Total CO2 22.9 VBG O2 Sat (Calc) 99.7 H VBG Base Excess -4.1 L VBG Potassium 3.4 L Sodium 138.0 Chloride 109.0 H Glucose 137 H Lactate 1.3 FiO2 21.0 Potassium Carbon Dioxide Anion Gap BUN Creatinine Est GFR ( Amer) Est GFR (Non-Af Amer) POC Glucose (mg/dL) Random Glucose Calcium Phosphorus Magnesium Iron TIBC % Saturation Total Bilirubin AST ALT Alkaline Phosphatase Troponin I Total Protein Albumin Globulin Albumin/Globulin Ratio Amylase Lipase Vitamin B12 Folate Procalcitonin 0.18 L Venous Blood Potassium 3.4 L Ur L.pneumophila Ag Blood Type Blood Type Confirm Antibody Screen BBK History Checked 04/25/18 04/26/18 04/26/18 21:15 00:13 01:00 WBC RBC Hgb Hct MCV MCH MCHC RDW Plt Count MPV Gran % Lymph % (Auto) [place]k % (Auto) Eos % (Auto) Baso % (Auto) Gran # Lymph # (Auto) [place]k # (Auto) Eos # (Auto) Baso # (Auto) pO2 VBG pH VBG pCO2 VBG HCO3 VBG Total CO2 VBG O2 Sat (Calc) VBG Base Excess VBG Potassium Sodium Chloride Glucose Lactate FiO2 Potassium Carbon Dioxide Anion Gap BUN Creatinine Est GFR ( Amer) Est GFR (Non-Af Amer) POC Glucose (mg/dL) 123 H Random Glucose Calcium Phosphorus Magnesium Iron TIBC % Saturation Total Bilirubin AST ALT Alkaline Phosphatase Troponin I 0.02 D Total Protein Albumin Globulin Albumin/Globulin Ratio Amylase Lipase Vitamin B12 Folate Procalcitonin Venous Blood Potassium Ur L.pneumophila Ag Negative Blood Type Blood Type Confirm Antibody Screen BBK History Checked 04/26/18 04/26/18 04/26/18 01:30 01:30 06:45 WBC 16.7 H D RBC 3.20 L Hgb 9.9 L Hct 30.1 L MCV 94.1 MCH 30.9 MCHC 32.9 RDW 13.1 Plt Count 173 MPV 8.8 Gran % 81.5 H Lymph % (Auto) 9.8 L [place]k % (Auto) 8.1 H Eos % (Auto) 0.5 L Baso % (Auto) 0.1 Gran # 13.57 H Lymph # (Auto) 1.6 [place]k # (Auto) 1.4 H Eos # (Auto) 0.1 Baso # (Auto) 0.02 pO2 VBG pH VBG pCO2 VBG HCO3 VBG Total CO2 VBG O2 Sat (Calc) VBG Base Excess VBG Potassium Sodium Chloride Glucose Lactate FiO2 Potassium Carbon Dioxide Anion Gap BUN Creatinine Est GFR ( Amer) Est GFR (Non-Af Amer) POC Glucose (mg/dL) Random Glucose Calcium Phosphorus Magnesium Iron TIBC % Saturation Total Bilirubin AST ALT Alkaline Phosphatase Troponin I Total Protein Albumin Globulin Albumin/Globulin Ratio Amylase Lipase Vitamin B12 Folate Procalcitonin 14.67 H Venous Blood Potassium Ur L.pneumophila Ag Blood Type B POSITIVE Blood Type Confirm Antibody Screen Negative BBK History Checked No verified bt 04/26/18 04/26/18 04/26/18 06:45 06:45 06:45 WBC RBC Hgb Hct MCV MCH MCHC RDW Plt Count MPV Gran % Lymph % (Auto) Polk % (Auto) Eos % (Auto) Baso % (Auto) Gran # Lymph # (Auto) Polk # (Auto) Eos # (Auto) Baso # (Auto) pO2 VBG pH VBG pCO2 VBG HCO3 VBG Total CO2 VBG O2 Sat (Calc) VBG Base Excess VBG Potassium Sodium 140 Chloride 114 H Glucose Lactate FiO2 Potassium 3.6 Carbon Dioxide 23 Anion Gap 7 L BUN 16 Creatinine 1.1 Est GFR ( Amer) > 60 Est GFR (Non-Af Amer) > 60 POC Glucose (mg/dL) Random Glucose 57 L Calcium 7.6 L Phosphorus 1.9 L Magnesium 1.8 Iron 16 L TIBC 262 % Saturation 6 L Total Bilirubin 0.5 AST 20 ALT 29 Alkaline Phosphatase 53 Troponin I 0.02 Total Protein 5.6 L Albumin 2.7 L Globulin 2.9 Albumin/Globulin Ratio 0.9 L Amylase Lipase Vitamin B12 449 Folate 11.0 Procalcitonin Venous Blood Potassium Ur L.pneumophila Ag Blood Type Blood Type Confirm Antibody Screen BBK History Checked 04/26/18 04/26/18 04/26/18 06:45 06:54 06:58 WBC RBC Hgb Hct MCV MCH MCHC RDW Plt Count MPV Gran % Lymph % (Auto) Polk % (Auto) Eos % (Auto) Baso % (Auto) Gran # Lymph # (Auto) Polk # (Auto) Eos # (Auto) Baso # (Auto) pO2 VBG pH VBG pCO2 VBG HCO3 VBG Total CO2 VBG O2 Sat (Calc) VBG Base Excess VBG Potassium Sodium Chloride Glucose Lactate FiO2 Potassium Carbon Dioxide Anion Gap BUN Creatinine Est GFR ( Amer) Est GFR (Non-Af Amer) POC Glucose (mg/dL) 44 L 46 L Random Glucose Calcium Phosphorus Magnesium Iron TIBC % Saturation Total Bilirubin AST ALT Alkaline Phosphatase Troponin I Total Protein Albumin Globulin Albumin/Globulin Ratio Amylase Lipase Vitamin B12 Folate Procalcitonin Venous Blood Potassium Ur L.pneumophila Ag Blood Type Blood Type Confirm B POSITIVE Antibody Screen BBK History Checked 04/26/18 04/26/18 08:41 10:21 WBC RBC Hgb Hct MCV MCH MCHC RDW Plt Count MPV Gran % Lymph % (Auto) Polk % (Auto) Eos % (Auto) Baso % (Auto) Gran # Lymph # (Auto) Polk # (Auto) Eos # (Auto) Baso # (Auto) pO2 VBG pH VBG pCO2 VBG HCO3 VBG Total CO2 VBG O2 Sat (Calc) VBG Base Excess VBG Potassium Sodium Chloride Glucose Lactate FiO2 Potassium Carbon Dioxide Anion Gap BUN Creatinine Est GFR ( Amer) Est GFR (Non-Af Amer) POC Glucose (mg/dL) 122 H Random Glucose Calcium Phosphorus Magnesium Iron TIBC % Saturation Total Bilirubin AST ALT Alkaline Phosphatase Troponin I Total Protein Albumin Globulin Albumin/Globulin Ratio Amylase 53 Lipase 42 Vitamin B12 Folate Procalcitonin Venous Blood Potassium Ur L.pneumophila Ag Blood Type Blood Type Confirm Antibody Screen BBK History Checked Critical Care Progress Note - Nutrition Nutrition: Nutrition Category Date Time Status Consistent Carbohydrate [DIET] Diets 04/26/18 Dinner Ordered Consistent Carbohydrate [DIET] Diets 04/26/18 Lunch Ordered Assessment/Plan - Assessment and Plan (Free Text) Plan: Patient seen and examined on rounds with resident, agree with note with following additions/exceptions: Patient is 78yo male with PMH of HTN, HLD, DM2, COPD and esophagitis admitted to ICU for observation after one episode of hematemesis s/p EGD, and Aspiration PNA Currently afebrile, BP stable, comfortable in NAD, doing well, O2 sat 96% on 2LNC CXR with LLL PNA GI and ID following HH is stable Aspiration PNA Anemia HTN DM COPD Recommend: - supp o2 as needed, duonebs PRN - Abx as per ID, Mark Guzman - DC IVF - Clear liquid diet - PPI PO - GI follow up - follow up cultures - HH monitoring - DVT ppx, SCDs - Stabel, transfer to tele
[2018-04-26] MEDS: Vancomycin 1gm in NS 250ml 1 GM/250 ML BAG IVPB SCH ×2 (08:26→20:26)
--- NOTE | 2018-04-26 09:04 | RAD ---
Date of service: 04/26/2018 HISTORY: pna COMPARISON: No prior. FINDINGS: LUNGS: Mild increase in mid left lateral and basilar infiltrates with right lung remaining clear. PLEURA: No significant pleural effusion identified, no pneumothorax apparent. CARDIOVASCULAR: No aortic atherosclerotic calcification present. Normal cardiac size. No pulmonary vascular congestion. OSSEOUS STRUCTURES: No significant abnormalities. VISUALIZED UPPER ABDOMEN: Normal. OTHER FINDINGS: None. IMPRESSION: Mild increase in left sided infiltrates as discussed above. None are seen at the right. No pleural effusion pneumothorax or pulmonary vascular congestion evident bilaterally.
[2018-04-26] MEDS ORDERED: METFORMIN HCL PO SCH (10:00)
[2018-04-26] MEDS ORDERED: [UNRECOGNIZED DRUG - OTHER] PO SCH (10:00)
[2018-04-26] MEDS ORDERED: GLYBURIDE PO SCH (10:00)
[2018-04-26] MEDS ORDERED: levoFLOXacin 500 mg in D5W 500 MG/100 ML BAG IVPB SCH (10:00)
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
[2018-04-26 10:44] LABS: AMYLASE 53 U/L (35-125); LIPASE 42 U/L (23-300)
--- NOTE | 2018-04-26 11:32 | US ---
Date of service: 04/26/2018 HISTORY: R/O cholecystitis COMPARISON: None. TECHNIQUE: Sonographic evaluation of the right upper quadrant of the abdomen. FINDINGS: LIVER: Measures 13.9 cm in length. The visualized hepatic parenchyma is unremarkable. The study is compromised by extensive overlying bowel gas throughout the abdomen nevertheless. No mass. No intrahepatic bile duct dilatation. Normal directional blood flow is identified the main portal vein. GALLBLADDER: Unremarkable. No gallstones. COMMON BILE DUCT: Measures 3.4 mm. No stones. No dilatation. PANCREAS: Imaging of the pancreas is not possible due to extensive overlying bowel gas. RIGHT KIDNEY: Measures 8.0 cm in length, borderline atrophic. Normal echogenicity. No calculus, mass, or hydronephrosis. AORTA: Not identified. IVC: Not identified. OTHER FINDINGS: None . IMPRESSION: Limited examination due to extensive shadowing from bowel gas. No focal hepatic lesion is identified or intrahepatic biliary dilatation with normal directional blood flow identified in the main portal vein. The pancreas, abdominal aorta and inferior vena cava are obscured by overlying bowel gas with right kidney borderline a trophic but without obstructive uropathy or gross mass associated.
--- NOTE | 2018-04-26 13:31 | CON ---
DATE: 04/26/2018 CHIEF COMPLAINT: Fever and shortness of breath x1 day. HISTORY OF PRESENT ILLNESS: A 78-year-old [place] Citizen male with history of hypertension, diabetes, chronic obstructive lung disease, history of pancreatitis, hyperlipidemia known to me from previous admission in 06/2017, who is admitted, had an endoscopy, was found to have erosive esophagus on the endoscopy. Post endoscopy, patient developed shortness of breath, fevers and admitted to the ICU, was hypotensive. PAST MEDICAL HISTORY: The patient's past medical history is significant for diabetes, hypertension, COPD, hyperlipidemia, pancreatitis, and erosive esophagus this admission on the endoscopy. REVIEW OF SYSTEMS: A 14-point review of systems is performed. PAST SURGICAL HISTORY: The patient had a cataract surgery. ALLERGIES: THE PATIENT HAS NO KNOWN ALLERGIES. PHYSICAL EXAMINATION: GENERAL: The patient is in bed, no acute distress. VITAL SIGNS: Temperature 101.3, T-max with heart rate 94, respiratory rate 24, blood pressure 90/60, it was less than 90 in the emergency room. HEENT: Unremarkable. NECK: Supple. LUNGS: Have decreased breath sounds. HEART: Normal, S1 and S2. ABDOMEN: Soft and nontender. No organomegaly. No rebound. No guarding. No masses. LABORATORY EXAMINATION: [place] [address], BUN 16, and creatinine 1.1, LFT's are noted to be normal. Chest x-ray shows infiltrate in the left side. ASSESSMENT AND PLAN: This is a 78-year-old [place] Citizen male with status post endoscopy with severe sepsis, hypertension, tachycardia, fever, infiltrate, post endoscopy with left lower lobe healthcare-associated pneumonia. We will order blood culture, urine cultures, sputum culture, methicillin-resistant staphylococcus aureus screen, procalcitonin and legionella was also ordered and the patient was given a dose of Levaquin earlier and on vancomycin and Zosyn. The patient also has renal ultrasound and a gallbladder ordered. We will follow up those results and treat the patient with vancomycin, Zosyn, pending final information. Jevon Palmer MD
--- NOTE | 2018-04-26 14:55 | CON ---
DATE: 04/26/2018 PULMONARY CONSULT NOTE REFERRING PHYSICIAN: Kathi Katz MD REASON FOR CONSULT: Shortness of breath, left lung infiltrate, possible pneumonia. HISTORY OF PRESENT ILLNESS: This is a 78-year-old man who was undergoing endoscopy as he was having complaints of epigastric abdominal pain. During procedure, the patient was coughing and noticed to have desaturation. Chest x-ray was done, which showed left lower lung infiltrate. The patient had episodes of hematemesis, was sent to ER where he proceeded to have two more episodes of coffee-ground hematemesis. Chest x-ray today shows mild increase in left side infiltrate. No pleural effusion, pneumothorax, pulmonary vascular congestion evidenced bilaterally. The patient today reports feeling much better than yesterday. Nursing does report the patient had hypoglycemic episode today. They spoke to Dr. Louis who cleared the patient to have clear liquids. PAST MEDICAL HISTORY: Pneumonia, diabetes mellitus, bilateral cataract surgery, degenerative joint disease, constipation. ALLERGIES: NO KNOWN DRUG ALLERGIES. SOCIAL HISTORY: No smoking, ETOH or illicit drug use. FAMILY HISTORY: No cardiopulmonary disease reported. MEDICATIONS: 1. Tylenol 1000 mg IV piggyback every 6 hours as needed. 2. Humulin R sliding scale. 3. Reglan 5 mg IV push every 6 hours. 4. Protonix 40 mg twice a day. 5. Zosyn every 8 hours. 6. Vancomycin every 12 hours, 1 g. REVIEW OF SYSTEMS: No headache, rhinitis, shortness of breath, chest pain, abdominal pain, nausea, vomiting, diarrhea, leg pain, leg swelling reported. The patient does report nonproductive cough at times. PHYSICAL EXAMINATION: GENERAL: No acute distress. VITAL SIGNS: Blood pressure 106/58, pulse 87, respirations 23, oxygen saturation 100. HEENT: Moist mucous membranes. NECK: Supple. No JVD. CHEST: Positive rhonchi bilaterally. Mild expiratory wheeze on left lung. HEART: S1, S2 audible. ABDOMEN: Soft, nontender. No organomegaly. No distention. EXTREMITIES: No bilateral lower extremity edema. NEUROLOGIC: Awake, alert, verbally responsive, able to follow simple commands. LABORATORY DATA: Reviewed. WBC 16.7, RBC 3.2, hemoglobin 9.9, hematocrit 30.1, platelets 173. PT 16.9, INR 1.47, APTT 25.1. Sodium 140, potassium 3.6, chloride 114, carbon dioxide 23, anion gap 7, BUN 16, creatinine 1.1, GFR greater than 60. POC glucose 122, random glucose 57. Calcium 7.6, phosphorus 1.9, magnesium 1.8. Iron 16, TIBC 262, percent saturation is 6. Total bilirubin 0.5, AST 20, ALT 29, alkaline phosphatase 53, troponin 0.02, total protein 5.6, albumin 2.7, globulin 2.9, albumin globulin ratio is 0.9, amylase 53, lipase 42. Influenza A and B negative. UA Legionella negative. Gallbladder ultrasound showed limited examination due to extensive shadowing from bowel gas, no focal hepatic lesion is identified or intrahepatic biliary dilatation with normal directional blood flow identified in the main portal vein, pancreas, abdominal aorta, inferior vena cava outskirt by overlying bowel gas with right kidney borderline atrophic but without obstructive uropathy or gross mass association. Chest x-ray: Mild increase in left side infiltrate, none on the right. No pleural effusion, pneumothorax, pulmonary vascular congestion evident bilaterally. IMPRESSION AND PLAN: The patient has anemia with sudden drop in hemoglobin, hyperglycemia, diabetes mellitus, hypoglycemic episode today, hypertension, hypocholesterolemia, chronic obstructive pulmonary disease. We will order Solu-Medrol 20 mg every 8 hours. We will add inhaled bronchodilators, Mucomyst, Pulmicort. We will order proBNP, procalcitonin to assess pneumonia, heart failure due to current anemia and sudden drop in hemoglobin status will order iron, anemia workup, stool for guaiac. We will order SCDs instead of chemical prophylaxis for DVT due to anemia status, increased risk for bleed. Head of bed elevated at 45 degrees, aspiration precautions. This patient will need followup chest x-ray to monitor infiltrates. This patient was seen and examined with Dr. Gan. Discussed assessment and plan as described above. Thank you for this consult and we will follow with you. Matty Moore APN Barron Gan MD [facility]
[2018-04-26] MEDS: Piperacillin/Tazobact 3.375 gm 100 ML IVPB SCH ×3 (15:00→21:19)
[2018-04-26] MEDS ORDERED: Midazolam 2 MG/2 ML VIAL IVP ONE (15:28)
[2018-04-26] MEDS ORDERED: Midazolam 100 mg/100ml in NS 100 MG/100 ML SOL IV PRN (15:28)
[2018-04-26] MEDS: MethylPREDNISolone 40 mg Vial IVP SCH ×2 (16:44→21:01)
[2018-04-26] MEDS: Pantoprazole 40 mg EC Tab PO SCH (16:47)
[2018-04-26] MEDS: Acetylcysteine 20% Inhal Soln (4ml) PO SCH (19:06)
[2018-04-26] MEDS: Arformoterol 15 mcg/2 ml Inh Sol IH SCH (19:39)
[2018-04-26] MEDS: Budesonide 0.5 mg/2 ml Inhal Susp UD IH SCH (19:39)
[2018-04-26] MEDS ORDERED: Arformoterol 15 mcg/2 ml Inh Sol IH SCH (20:00)
--- NOTE | 2018-04-27 03:16 | PN ---
DATE: 04/26/2018 SUBJECTIVE: The patient seen and examined at bedside on 04/26/2018 in the ICU, feeling better. No more fever. No more nausea or vomiting, coughing once in a while. No headache. No dizziness. Tolerating food very well. PHYSICAL EXAMINATION: VITAL SIGNS: Blood pressure 106/58, pulse 87, respiratory rate 23, oxygen 100%. HEENT: Head; normocephalic, atraumatic. Eyes; PERRLA. Extraocular muscles intact. Conjunctivae clear. Nose patent. NECK: Supple. No carotid bruits. No thyromegaly. CHEST: Bilaterally symmetrical. HEART: S1 and S2 positive. LUNGS: Clear to auscultation. ABDOMEN: Soft. Bowel sounds present. No organomegaly. EXTREMITIES: No bilateral lower extremity edema. NEUROLOGIC: The patient is awake and alert. Follows simple commands. LABORATORY DATA: White blood cells 16.7, hemoglobin 9.9, hematocrit 30.1, platelets 173. Sodium 140, BUN 16, creatinine 1.1, glucose 122. AST 20 and ALT 29. MEDICATIONS: Tylenol, insulin, Reglan, Protonix. ASSESSMENT AND PLAN: Mr. Rodney Tabares is a 78 years old male. The patient has anemia, sudden drop of hemoglobin, [id number] anemia; hyperglycemia; status post hypoglycemic episodes today; hypotension; hypercholesterolemia; chronic obstructive lung disease. We will order Solu-Medrol 20 mg every 8 hours, add inhaled bronchodilators. The patient has pneumonia, heart failure due to current anemia, and sudden drop in hemoglobin, status post upper endoscopy. Dr. Louis cleared the patient . According to Pulmonary, the patient has to go for x-rays for follow up. Length of time discussion done. Repeat labs. We will follow up. Kathi Katz MD
[2018-04-27] MEDS: Piperacillin/Tazobact 3.375 gm 100 ML IVPB SCH ×3 (05:19→22:03)
[2018-04-27] MEDS: Pantoprazole 40 mg EC Tab PO SCH (05:20)
[2018-04-27] MEDS: MethylPREDNISolone 40 mg Vial IVP SCH ×2 (05:20→22:02)
[2018-04-27 07:06] LABS: HEMOGLOBIN 10.4 g/dL (14.0-18.0); MEAN CELL VOLUME 94.1 fl (80.0-105.0); MEAN CORPUSCULAR HEMOGLOBIN 30.6 pg (25.0-35.0); MEAN CORPUSCULAR HGB CONC 32.5 g/dl (31.0-37.0); MEAN PLATELET VOLUME 9.6 fl (7.0-11.0); RBC 3.4 10^6/uL (3.5-6.1); RED CELL DISTRIBUTION WIDTH 13.3 % (11.5-14.5); WHITE BLOOD COUNT 16.4 10^3/uL (4.5-11.0)
[2018-04-27] MEDS: Vancomycin 1gm in NS 250ml 1 GM/250 ML BAG IVPB SCH ×2 (07:14→20:16)
[2018-04-27] MEDS: Budesonide 0.5 mg/2 ml Inhal Susp UD IH SCH ×2 (07:29→23:12)
[2018-04-27] MEDS: Arformoterol 15 mcg/2 ml Inh Sol IH SCH ×2 (07:29→23:12)
[2018-04-27] MEDS: Acetylcysteine 20% Inhal Soln (4ml) PO SCH (09:21)
[2018-04-27] MEDS: Insulin Reg-LOW-Coverage SC SCH ×2 (09:26→12:32)
[2018-04-27 12:38] LABS: FERRITIN 42.8 ng/mL
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
--- NOTE | 2018-04-27 13:23 | PN ---
DATE: 04/27/2018 SUBJECTIVE: Patient sitting up in chair at bedside. Reports feeling well today. Has mild productive cough. No shortness of breath. No headache, rhinitis, chest pain, abdominal pain, nausea, vomiting, leg pain, leg swelling reported. OBJECTIVE GENERAL: No acute distress. VITAL SIGNS: Blood pressure 144/93, pulse 89, oxygen saturation 100% on room air, afebrile. HEENT: Moist mucous membrane. NECK: Supple. No JVD. CHEST: Mild crackles left base. No audible wheeze. CARDIOVASCULAR: S1, S2 audible. ABDOMEN: Soft, nontender. No distension. No organomegaly. EXTREMITIES: No bilateral edema. NEUROLOGICAL: Awake, alert, verbal. Able to follow simple commands. LABORATORY DATA: Reviewed. WBC 16.4, RBC 3.4, hemoglobin 10.4, hematocrit 32, platelets 206. POC glucose 205. Iron 14. MEDICATIONS: Reviewed. Acetaminophen 1000 mg IV piggyback every 6 hours as needed for temp greater than 100.4, twice a day, Norvasc 5 mg orally daily, Brovana 15 mcg inhalation every 12 hours, Pulmicort 0.5 mg inhalation every 12 hours, Humulin R sliding scale, Solu-Medrol 20 mg IV push every 8 hours, Protonix 40 mg twice a day, Actos 30 mg orally daily, Zosyn every 8 hours, vancomycin 1 g every 12 hours. IMPRESSION AND PLAN: Anemia with some drop in hemoglobin, hyperglycemia, diabetes mellitus, hypertension, hypocholesteremia, chronic obstructive pulmonary disease. Continue inhaled bronchodilators. ProBNP, procalcitonin, anemia workup pending. We will add iron 200 mg intravenous daily for 3 days while awaiting anemia workup. Fall precautions. Gastric prophylaxis. Continue sequential compression devices for deep venous thrombosis prophylaxis. Aspiration precautions. Head to bed elevated 45 degrees. Patient was seen and examined with Dr. Gan. Discussed assessment and plan as described above. Thank you for this consult. We will follow with you. Matty Prudence, CATALOGING ASSISTANT Barron Gan MD [facility] # [id number]
[2018-04-27] MEDS ORDERED: Dextrose 50% SYRINGE Inj (50 ml) IV PRN (16:50)
[2018-04-27] MEDS: Insulin Reg-MEDIUM-Coverage SC SCH ×2 (17:18→22:01)
[2018-04-28] MEDS ORDERED: MethylPREDNISolone 40 mg Vial IVP SCH (00:11)
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
[2018-04-28] MEDS: Piperacillin/Tazobact 3.375 gm 100 ML IVPB SCH (05:54)
[2018-04-28 06:06] LABS: BASO # 0.01 K/mm3 (0.0-2.0); BASO % 0.1 % (0.0-3.0); GRAN # 16.36 (1.4-6.5); GRAN % 90.1 % (50.0-68.0); HEMOGLOBIN 10.4 g/dL (14.0-18.0); LYMPH # 0.9 (1.2-3.4); LYMPH % 5.1 % (22.0-35.0); MEAN CELL VOLUME 93.4 fl (80.0-105.0); MEAN CORPUSCULAR HEMOGLOBIN 31.1 pg (25.0-35.0); MEAN CORPUSCULAR HGB CONC 33.3 g/dl (31.0-37.0); MEAN PLATELET VOLUME 9.7 fl (7.0-11.0); MONO # 0.9 (0.1-0.6); MONO % 4.7 % (1.0-6.0); PLATELET COUNT 215 10^3/uL (120.0-450.0); RBC 3.34 10^6/uL (3.5-6.1); WHITE BLOOD COUNT 18.2 10^3/uL (4.5-11.0)
[2018-04-28 06:54] LABS: ALB/GLOB RATIO 0.9 (1.1-1.8); ALBUMIN 3.2 g/dL (3.0-4.8); ALT/SGPT 19 U/L (7-56); AST/SGOT 15 U/L (17-59); BLOOD UREA NITROGEN 24 mg/dL (7-21); CALCIUM 8.6 mg/dL (8.4-10.5); GFR NON-AFRICAN AMERICAN > 60
[2018-04-28] MEDS: Budesonide 0.5 mg/2 ml Inhal Susp UD IH SCH (07:35)
[2018-04-28] MEDS: Arformoterol 15 mcg/2 ml Inh Sol IH SCH (07:35)
[2018-04-28] MEDS: Insulin Reg-MEDIUM-Coverage SC SCH ×2 (08:30→11:52)
[2018-04-28] MEDS: Pantoprazole 40 mg EC Tab PO SCH (08:30)
[2018-04-28] MEDS: Vancomycin 1gm in NS 250ml 1 GM/250 ML BAG IVPB SCH (08:30)
[2018-04-28 10:23] LABS: LYMPHOCYTE 8 % (22.0-35.0); MONOCYTE 3 % (1.0-6.0); NEUTROPHIL 89 % (50.0-70.0)
[2018-04-28 10:24] LABS: PLATELET ESTIMATE NORMAL (NORMAL)
[2018-04-28] MEDS: Acetylcysteine 20% Inhal Soln (4ml) PO SCH (10:38)
--- NOTE | 2018-04-28 13:01 | PN ---
DATE: 04/28/2018 PULMONARY PROGRESS NOTE REFERRING PHYSICIAN: Kathi Katz MD SUBJECTIVE: The patient is sitting up in bed. No overnight events reported. The patient reports feeling well today. No headache, rhinitis, shortness of breath, chest pain, abdominal pain, nausea, vomiting, diarrhea, leg pain, or leg swelling reported. Patient does report occasional cough. OBJECTIVE: VITAL SIGNS: Blood pressure 140/73, pulse 82, temp 98, oxygen saturation 100%. GENERAL: No acute distress. HEENT: Moist mucous membranes. NECK: Supple. No JVD. CHEST: No audible wheeze. A few rhonchi bilaterally. CARDIOVASCULAR: S1, S2 audible. ABDOMEN: Soft, nontender. No distention. No organomegaly. EXTREMITIES: No bilateral edema. NEUROLOGIC: Awake, alert, verbal. Able to follow commands. LABORATORY DATA: Reveal WBC 18.2, RBC 3.34, hemoglobin 12.4, hematocrit 31.2, platelets 215,000. Sodium 138, potassium 4.7, chloride 109, CO2 24, anion gap 10, BUN 24, creatinine 0.9. GFR greater than 60, POC glucose 270, random glucose 318, calcium 8.6, total bilirubin 0.3, AST 15, ALT 19, alkaline phosphatase 63. Total bilirubin 6.5, albumin 3.2, globulin 3.3, albumin globulin ratio 0.9. MEDICATIONS: Reviewed. Mucomyst 3 mL p.o. twice a day, Norvasc 5 mg p.o. daily, Brovana 15 mcg inhalation every 12 hours, Pulmicort 0.5 mg inhalation every 12 hours, dextrose 2000 mL, glyburide 5 mg twice a day, insulin Humulin R sliding scale, iron sucrose 1200 mg daily, Glucophage 500 mg twice a day, Solu-Medrol 10 mg every 8 hours, Protonix 40 mg twice a day, Actos 30 mg daily, Zosyn IV every 8 hours. IMPRESSION AND PLAN: Anemia, hyperglycemia, diabetes mellitus, hypertension, hypercholesterolemia, chronic obstructive pulmonary disease, asthma, diastolic dysfunction, pulmonary hypertension. We will change intravenous Solu-Medrol to prednisone p.o. Fall precautions. Gastric prophylaxis. Continue sequential compression devices for deep venous thrombosis prophylaxis. Aspiration precautions. Head of bed elevated 45 degrees. Case discussed with Dr. Katz. This patient was seen and examined with Dr. Gan. Discussed assessment and plan as described above. Thank you for this consult. We will follow with you. Matty Moore APN Barron Gan MD [facility]
[2018-04-28 14:41] VITALS: BP 139/74; PULSE 89; RESP 28; O2SAT 98
[2018-04-28 14:43] VITALS: TEMP 98.4
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
== END 2018-04-28 14:28 | DRG 871 ==
LOC: ED 13:30 → ERH 14:47 → ICU 21:12
PROVIDERS: ADMIT Internal Medicine; ATTEND Internal Medicine
PROC: 3E0F7GC Introduction of Other Therapeutic Substance into Respiratory Tract, Via Natural or Artificial Opening (ICD-10-PCS; principal; 2018-04-26)
DX: A41.9 Sepsis, unspecified organism (principal); J69.0 Pneumonitis due to inhalation of food and vomit; K22.11 Ulcer of esophagus with bleeding; K92.0 Hematemesis; R65.20 Severe sepsis without septic shock; Z79.82 Long term (current) use of aspirin; Z79.899 Other long term (current) drug therapy; Z79.84 Long term (current) use of oral hypoglycemic drugs; R00.0 Tachycardia, unspecified; I95.9 Hypotension, unspecified; I10 Essential (primary) hypertension; E11.65 Type 2 diabetes mellitus with hyperglycemia; Y95 Nosocomial condition; D64.9 Anemia, unspecified; E11.649 Type 2 diabetes mellitus with hypoglycemia without coma; E78.00 Pure hypercholesterolemia, unspecified; E78.5 Hyperlipidemia, unspecified; E78.6 Lipoprotein deficiency; E87.8 Other disorders of electrolyte and fluid balance, not elsewhere classified; I11.0 Hypertensive heart disease with heart failure; I27.20 Pulmonary hypertension, unspecified; I50.9 Heart failure, unspecified; J44.9 Chronic obstructive pulmonary disease, unspecified; K21.9 Gastro-esophageal reflux disease without esophagitis; Z87.01 Personal history of pneumonia (recurrent); Z87.19 Personal history of other diseases of the digestive system; Z98.42 Cataract extraction status, left eye; Z98.41 Cataract extraction status, right eye; M19.90 Unspecified osteoarthritis, unspecified site; K59.00 Constipation, unspecified

== ENCOUNTER 2018-04-28 02:48 | Inpatient (IN) | payer OTHER ==
[2018-04-28 15:54] VITALS: BMI 27.1
[2018-04-28] MEDS ORDERED: Dextrose 50% SYRINGE Inj (50 ml) IV PRN (16:12)
[2018-04-28] MEDS ORDERED: Influenza Vaccine 60 mcg/0.5 mL SYR (4YR UP) IM ONE (17:19)
[2018-04-28] MEDS ORDERED: Pneumococcal 23-Valent Vaccine IM ONE (17:19)
[2018-04-28] MEDS: Pantoprazole 40 mg EC Tab PO SCH (17:30)
[2018-04-28] MEDS: Insulin Reg-MEDIUM-Coverage SC SCH (17:57)
[2018-04-28] MEDS ORDERED: Acetylcysteine 20% Inhal Soln (4ml) PO SCH (18:00)
[2018-04-28] MEDS: Piperacillin/Tazobact 3.375 gm 100 ML IVPB SCH (21:37)
[2018-04-28] MEDS: Budesonide 0.5 mg/2 ml Inhal Susp UD IH SCH (22:25)
[2018-04-28] MEDS: Arformoterol 15 mcg/2 ml Inh Sol IH SCH (22:25)
[2018-04-29] MEDS: Insulin Reg-MEDIUM-Coverage SC SCH ×5 (01:25→22:10)
[2018-04-29] MEDS: Pantoprazole 40 mg EC Tab PO SCH ×2 (05:15→16:20)
[2018-04-29] MEDS: Piperacillin/Tazobact 3.375 gm 100 ML IVPB SCH ×3 (05:15→21:54)
[2018-04-29] MEDS: IRON SUCROSE IVPB SCH (10:50)
[2018-04-29] MEDS: SODIUM CHLORIDE 0.9% IVPB SCH (10:50)
--- NOTE | 2018-04-29 11:51 | CON ---
DATE OF CONSULTATION: 04/29/2018 The patient is seen earlier today in Room 302. CHIEF COMPLAINT: Weakness for several days. HISTORY OF PRESENT ILLNESS: This is a 78-year-old [place]ian man with a history of hypertension, diabetes, chronic obstructive lung disease, history of pancreatitis, hyperlipidemia. The patient had endoscopy and was found to have erosive esophagus on endoscopy. Post endoscopy, the patient had developed shortness of breath and became hypotensive, was admitted to the ICU with fevers and infectious disease consultation requested. Now, the patient is feeling much better; however, he is weak. He did have fevers, shortness of breath and cough. No abdominal pain. No diarrhea or constipation. No dysuria, frequency or rash. PAST MEDICAL HISTORY: Significant for chronic obstructive lung disease, pancreatitis, hyperlipidemia, diabetes mellitus, hypertension and a recent diagnosis of erosive esophagus on endoscopy. PAST SURGICAL HISTORY: Significant for cataract surgery. ALLERGIES: THE PATIENT HAS NO KNOWN ALLERGIES. REVIEW OF SYSTEMS: A 14-point review of systems is performed. PHYSICAL EXAMINATION: VITAL SIGNS: The patient's temperature is 98, blood pressure is 120/70, respiratory rate is 16. HEENT: Unremarkable. NECK: Supple. LUNGS: Decreased breath sounds. HEART: Normal S1, S2. ABDOMEN: Soft, nontender. LABORATORY EXAMINATION: The patient's white count of 18,200 yesterday, hemoglobin of 10, platelets of 215,000. Chemistries reveal the patient's BUN of 24, creatinine of 0.9, glucose of 318, ALT is 19, AST is 15. The patient had a procalcitonin, which was elevated at 10.63. Review of cultures reveals the blood cultures are negative. MRSA nares screen is negative. The urine cultures are negative. The patient had an abdominal ultrasound. ASSESSMENT/PLAN: This is a 78-year-old [place] man with hypertension, diabetes, chronic obstructive pulmonary disease, pancreatitis and status post endoscopy, found to have erosive esophagus, developed fevers and chills and hypotension. #1 is severe sepsis with healthcare-associated pneumonia, probable bacterial, with an elevated procalcitonin, status post endoscopy, currently on Zosyn day #4. Because the nasal MRSA screen was negative and the blood cultures are negative, the vancomycin was discontinued. Would complete 4-7 days of antibiotics. The patient is improved. Currently on Zosyn day #4. The patient is also on prednisone, today is day #4 of 4-7 days. We will follow with you. Jevon Palmer MD
[2018-04-29] MEDS: Budesonide 0.5 mg/2 ml Inhal Susp UD IH SCH (19:42)
[2018-04-29] MEDS: Arformoterol 15 mcg/2 ml Inh Sol IH SCH (19:42)
--- NOTE | 2018-04-29 23:57 | CON ---
DATE: 04/29/2018 PULMONARY CONSULTATION REFERRING PHYSICIAN: Dr. Katz REASON FOR CONSULT: Chronic obstructive lung disease, cough and shortness of breath. HISTORY OF PRESENT ILLNESS: This is a 78-year-old gentleman known to me from previous admission, has a history of chronic obstructive lung disease, history of pancreatitis, hyperlipidemia, diabetes, hypertension, diagnosed with erosive gastritis, esophagitis, probably has sleep apnea syndrome, refused to use CPAP and follow up, originally admitted to Intensive Care Unit, presently at for continued care, has some cough and shortness of breath. No hemoptysis, emesis, hematuria, diarrhea, leg pain or leg swelling. PAST MEDICAL HISTORY: As per history of present illness. ALLERGIES: NONE KNOWN. SOCIAL HISTORY: Nonsmoker, nondrinker. FAMILY HISTORY: No significant cardiopulmonary disease reported. MEDICATIONS: He is on Mucomyst 3 mL inhaled twice a day, Actos 30 mg daily, Brovana inhaled twice a day, metformin 500 mg twice a day, iron sucrose 200 mg daily, glyburide 5 mg twice a day, Norvasc 5 mg daily, prednisone 20 mg daily, Protonix 40 mg twice a day, Pulmicort inhaled twice a day, Zosyn 3.375 g every 8 hours. REVIEW OF SYSTEMS: No headache, no rhinitis. Has some cough, shortness of breath. No chest pain. No nausea, vomiting, diarrhea, leg pain or leg swelling. PHYSICAL EXAMINATION: GENERAL: No acute distress. VITAL SIGNS: Temp is 98, heart rate is 82, respiratory rate is 20, blood pressure 132/67, pulse ox 98% on nasal cannula. HEENT: Small oral cavity. Crowded airway. NECK: Supple. No JVD. LUNGS: Have prolonged expiratory phase with wheezing. HEART: S1 and S2. ABDOMEN: Soft, nontender. No organomegaly. EXTREMITIES: No edema. NEUROLOGIC: Awake, alert, follows simple commands. LABORATORY DATA: Shows blood sugar this morning 246. IMPRESSION AND PLAN: Chronic obstructive lung disease, gastrointestinal bleed with erosive esophagitis, cardiac diastolic dysfunction with pulmonary hypertension, suspected sleep apnea syndrome, diabetes, hyperglycemia, anemia, hyperlipidemia, hypertension. Spoke to family at bedside, all their questions answered. Continue bronchodilator. Keep head at 45 degrees. Gastroesophageal reflux disease precaution. Sequential compression devices to lower extremity. Proton inhibitors. We will recommend attended sleep study upon discharge as an outpatient, also PFT as an outpatient. Thank you and we will follow with you. Barron Gan MD
[2018-04-30] MEDS: Piperacillin/Tazobact 3.375 gm 100 ML IVPB SCH ×3 (05:29→21:11)
[2018-04-30] MEDS: Pantoprazole 40 mg EC Tab PO SCH ×2 (05:29→16:10)
[2018-04-30] MEDS: Insulin Reg-MEDIUM-Coverage SC SCH ×4 (06:51→22:13)
[2018-04-30 07:08] LABS: HEMOGLOBIN 9.9 g/dL (14.0-18.0); MEAN CORPUSCULAR HEMOGLOBIN 30.3 pg (25.0-35.0); MEAN CORPUSCULAR HGB CONC 32.6 g/dl (31.0-37.0); MEAN PLATELET VOLUME 9.3 fl (7.0-11.0); RBC 3.27 10^6/uL (3.5-6.1); WHITE BLOOD COUNT 10.3 10^3/uL (4.5-11.0)
[2018-04-30 07:30] LABS: BLOOD UREA NITROGEN 24 mg/dL (7-21); CALCIUM 8.9 mg/dL (8.4-10.5); GFR NON-AFRICAN AMERICAN > 60
[2018-04-30] MEDS: Budesonide 0.5 mg/2 ml Inhal Susp UD IH SCH (08:40)
[2018-04-30] MEDS: Arformoterol 15 mcg/2 ml Inh Sol IH SCH (08:40)
--- NOTE | 2018-04-30 10:15 | HP ---
DATE OF EXAM: 04/29/2018 The patient is 78 years old male. The patient was seen and examined at the bedside on 04/29/2018. CHIEF COMPLAINT: Coughing, shortness of breath, feeling fatigued and tired. HISTORY OF PRESENT ILLNESS: Mr. Rayshawn Mccloud, 78-year-old [place] man with history of hypertension, well controlled; diabetes mellitus, well controlled; chronic obstructive lung disease; has history of pancreatitis, pneumonia, hypercholesterolemia. The patient had an endoscopy done, found to have esophagitis, has erosive lesion on the esophagus on endoscopy. Post-endoscopy, the patient had developed shortness of breath and became hypotensive and had high fever, was admitted to the ICU with fever, and Infectious Disease consultation was called. He started the antibiotics. Now, the patient is feeling much better. The patient still has shortness of breath. No abdominal pain. No diarrhea. No constipation. No dysuria. No frequency. No rash. PAST MEDICAL HISTORY: As above, diabetes mellitus, chronic obstructive lung disease, pancreatitis, hypercholesterolemia, and hypertension. PAST SURGICAL HISTORY: Cataract surgery. ALLERGIES: THE PATIENT IS NOT ALLERGIC WITH ANY MEDICATION. REVIEW OF SYSTEMS: The patient was seen and examined at the bedside, looking comfortable. No fever. No chills. No hematuria or hematochezia. No headache. No dizziness. No chest pain. No palpitation. PHYSICAL EXAMINATION VITAL SIGNS: Temperature 98.6, blood pressure 120/70, respiratory rate 16. HEENT: Head: Normocephalic, atraumatic. Eyes: PERRLA. Extraocular muscles intact. Conjunctivae clear. Nose patent. NECK: Supple. No carotid bruit. No JVD or thyromegaly. CHEST: Bilaterally symmetrical. HEART: S1 and S2 positive. LUNGS: Clear to auscultation. ABDOMEN: Soft. Bowel sounds present. No organomegaly. EXTREMITIES: No edema. No cyanosis. NEUROLOGICAL: The patient is awake and alert. Moving all 4 extremities. No focal deficit. LABORATORY DATA: Glucose 184, 147, 104, 140, 246, 259. We do not have recent labs, but I reviewed old labs. ASSESSMENT AND PLAN: Mr. Rogers Tabares is a 78-year-old male with history of hypertension; diabetes mellitus; chronic obstructive lung disease; pancreatitis, status post endoscopy, found to have erosive esophagitis; developed fever and chills and hypotension. It is day first for severe sepsis with healthcare-associated pneumonia, probably bacterial with an elevated prolactin, status post esophagoscopy, currently on Zosyn day 4. Because of the nasal methicillin-resistant Staphylococcus aureus was negative and the blood cultures were negative, and the patient is getting vancomycin, physical therapy, out of bed. Discussion done with the patient and staff of ER. We will continue IV fluid. Repeat labs. We will follow up. Kathi Katz MD
[2018-04-30] MEDS: SODIUM CHLORIDE 0.9% IVPB SCH (10:41)
[2018-04-30] MEDS: IRON SUCROSE IVPB SCH (10:41)
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
--- NOTE | 2018-04-30 12:26 | PN ---
DATE: 04/30/2018 SUBJECTIVE: The patient was seen in TCU. He denies any abdominal pain, chest pain, throat pain, nausea or vomiting. He states that his cough is less and nonproductive. PHYSICAL EXAMINATION: VITAL SIGNS: Temperature of 98, blood pressure 129/63, heart rate of 82. HEENT: Sclerae to be white. Conjunctivae pale. NECK: Supple. CHEST: Mild coarse rales in the left lung burgos. HEART: Regular rate and rhythm. ABDOMEN: Soft, nontender. EXTREMITIES: No edema. LABORATORY DATA: Hemoglobin 9.9, white blood cell count 10.3. Chemistries reveal BUN 24, creatinine 1, blood sugar is 147. IMPRESSION: 1. A 78-year-old male with community-acquired pneumonia responding to antibiotics. 2. Erosive esophagitis. 3. Anemia, most likely chronic disease. RECOMMENDATIONS: 1. Continue IV Zosyn as per Infectious Disease. 2. Continue pantoprazole 40 mg daily. The patient is stable from a GI standpoint. Jordan Louis MD
[2018-04-30] MEDS ORDERED: Petrolatum Oint Foilpak (5 gm) TOP PRN (13:59)
--- NOTE | 2018-04-30 14:49 | PN ---
DATE: 04/30/2018 PULMONARY PROGRESS NOTE REFERRING PHYSICIAN: Kathi Katz MD SUBJECTIVE: The patient sitting up at bedside. No acute distress reported. The patient does report slight nosebleed after using oxygen this morning. No overnight events reported. No headache, rhinitis, cough, shortness of breath, chest pain, abdominal pain, nausea, vomiting, dysuria, leg pain, leg swelling reported. OBJECTIVE: GENERAL: No acute distress. VITAL SIGNS: Blood pressure 129/63, pulse 82, temperature afebrile, oxygen saturation 98% on room air. HEENT: Moist mucous membrane, crowded airway. Small oral cavity. NECK: Supple. No JVD. LUNGS: Prolonged expiratory phase. No audible wheezing. CARDIOVASCULAR: S1 and S2 audible. ABDOMEN: Soft, nontender. No distention. No organomegaly. EXTREMITIES: No bilateral lower extremity edema. NEUROLOGIC: Awake, alert, verbal. Follows simple commands. MEDICATIONS: Reviewed. Mucomyst 3 mL p.o. daily, Norvasc 5 mg p.o. daily, Brovana 15 mcg inhalation every 12 hours, Pulmicort 0.5 mg inhalation every 12 hours, dextrose 5% in water IV, glyburide 5 mg twice a day, Humulin R sliding scale, iron sucrose 20 mg IV piggyback daily, metformin 500 mg twice a day, Protonix 40 mg twice a day, Actos 30 mg daily, Zosyn 3.375 every 8 hours, prednisone 20 mg daily. LABORATORY DATA: Reviewed. WBC 10.3, RBC 3.27, hemoglobin 9.9, hematocrit 30.4, platelets 218. Sodium 136, potassium 3.9, chloride 104, carbon dioxide 29, anion gap 7, BUN 24, creatinine 1.1. GFR greater than 60. POC glucose 118, random glucose 147. Calcium 8.9. IMPRESSION AND PLAN: Chronic obstructive lung disease, gastrointestinal bleed with erosive esophagitis, cardiac diastolic dysfunction with pulmonary hypertension, suspected sleep apnea syndrome, diabetes, hyperglycemia, hyperlipidemia, hypotension, anemia. Pulmonary point of view, the patient doing well. Continue bronchodilators, keep head of bed elevated 45 degrees, sleep apnea precaution, gastroesophageal reflux disease precaution. Continue sequential compression devices to lower extremities. We will recommend petroleum jelly p.r.n. to nostrils. We will decrease prednisone to 15 mg daily. The patient has activities of daily living dysfunction, continue therapy. We recommend attended sleep study and full pulmonary function test as outpatient. This patient was seen and examined with Dr. Gan. Discussed assessment and plan as described above. Thank you for this consult. We will follow. Matty Moore APN Barron Gan MD
[2018-05-01] MEDS: Piperacillin/Tazobact 3.375 gm 100 ML IVPB SCH ×3 (05:04→22:31)
[2018-05-01] MEDS: Pantoprazole 40 mg EC Tab PO SCH ×2 (05:07→17:53)
[2018-05-01] MEDS: Insulin Reg-MEDIUM-Coverage SC SCH ×4 (06:43→22:37)
[2018-05-01] MEDS: Budesonide 0.5 mg/2 ml Inhal Susp UD IH SCH ×2 (07:27→20:32)
[2018-05-01] MEDS: Arformoterol 15 mcg/2 ml Inh Sol IH SCH ×2 (07:27→20:31)
--- NOTE | 2018-05-01 08:17 | PN ---
DATE: 04/30/2018 SUBJECTIVE: The patient is a 78 years old male. The patient was seen and examined at bedside 04/30/2018, looking comfortable. No fever. No chills. No nausea, vomiting, diarrhea. No headache. No dizziness. No shortness of breath. No abdominal pain. No dysuria. No swelling of the legs. PHYSICAL EXAMINATION VITAL SIGNS: Blood pressure 128/63, pulse 52, temperature afebrile, oxygen saturation is 98% on room air. HEENT: Head; normocephalic, atraumatic. Eyes; PERRLA. Extraocular muscles are intact. Conjunctivae clear. Nose patent. Mucous membranes moist. NECK: Supple. No carotid bruits. No JVD or thyromegaly. CHEST: Bilaterally symmetrical. HEART: S1, S2 positive. LUNGS: Clear to auscultation. ABDOMEN: Soft. Bowel sounds present. No organomegaly. EXTREMITIES: No edema. No cyanosis. NEUROLOGIC: The patient is awake, alert. Moving all four extremities. No focal deficits. MEDICATIONS: Mucomyst, Norvasc, Brovana, Pulmicort, glyburide, insulin, iron, metformin, Protonix, Actos, Zosyn, prednisone. LABORATORY DATA: White blood cells 10.3, hemoglobin 9.9, hematocrit 30.4, platelets 218. Sodium 136, potassium 3.9, BUN 24, creatinine 1.1, glucose 147. ASSESSMENT AND PLAN: Mr. Rogers Tabares is a 78 years old male with chronic obstructive pulmonary disease, anemia acute on chronic, got blood transfusion and iron infusion and B12 injections. Gastrointestinal bleeding with erosive esophagitis, got diastolic dysfunction with pulmonary hypertension, diabetes mellitus, hyperglycemia, hypercholesterolemia, history of hypertension, but now this admission he has hypotension. Continue bronchodilators, physical therapy. The patient has gastroesophageal reflux disease, dyspepsia. The patient has sequential compression devices to his lower extremities. The patient has episode of bleeding today from the nose, may be irritation with nasal cannula; discontinue nasal cannula. Try to keep nostril wet. Got tapering dose of prednisone. The patient is not able to do his ADLs, getting physical therapy. Gastrointestinal and deep venous thrombosis prophylaxis. Reviewed Dr. Gan's note and Dr. Jean Boyd's notes also. History of esophagitis and history of pancreatitis. Continue Zosyn day 5 to complete the 7 days of antibiotics as per Infectious Disease, Dr. Palmer. Severe sepsis due to left lower lobe healthcare associated pneumonia. Reviewed Dr. Jean Boyd's, Dr. Gan's, and Dr. Louis's notes. Continue pantoprazole. Repeat labs. We will follow up. Kathi Katz MD
--- NOTE | 2018-05-01 16:02 | PN ---
PULMONARY PROGRESS NOTE DATE: 05/01/2018 REFERRING PHYSICIAN: Kathi Katz MD SUBJECTIVE: The patient is sitting up at bedside. No acute distress. No overnight events reported. No headache, rhinitis, cough, shortness of breath, chest pain, abdominal pain, nausea, vomiting, diarrhea, leg pain, or leg swelling reported. OBJECTIVE: GENERAL: No acute distress. VITAL SIGNS: Blood pressure 125/62, pulse 60, temperature 97.8, and oxygen saturation 96%. HEENT: Moist mucous membranes. Crowded airway. Small oral cavity. NECK: Supple. No JVD. LUNGS: Clear bilaterally. No audible wheezing. CARDIOVASCULAR: S1, S2 audible. ABDOMEN: Soft, nontender. No distention. No organomegaly. EXTREMITIES: No bilateral lower extremity edema. NEUROLOGIC: Awake, alert, verbal, and follows simple commands. LABORATORY DATA: Reviewed. No new labs. MEDICATIONS: Reviewed. Norvasc 5 mg daily, Brovana 15 mcg inhalation every 12 hours, Pulmicort 0.5 mg every 12 hours, dextrose IV, Vaseline ointment topically to affected area p.r.n., glyburide 5 mg twice a day, insulin R sliding scale, iron sucrose 200 mg daily, metformin 500 mg twice a day, Protonix 40 mg twice a day, Actos 30 mg daily, Zosyn 3.375 mg every 8 hours, and prednisone 15 mg daily. IMPRESSION AND PLAN: Chronic obstructive lung disease, gastrointestinal bleed with erosive esophagitis, cardiac diastolic dysfunction with pulmonary hypertension, suspected sleep apnea syndrome, diabetes, hyperglycemia, hyperlipidemia, hypotension, and anemia. Pulmonary point of view, sleep apnea precaution, keep head of bed elevated at 45 degrees, continue inhaled bronchodilators. Gastroesophageal reflux disease, continue sequential compression devices to lower extremities. Continue physical therapy as the patient does have activities of daily living dysfunction. We recommend attended sleep study and full pulmonary function test as outpatient. This patient was seen and examined with Dr. Gan. Discussed assessment and plan as described above. Thank you for this consult. We will follow. Matty Prudence, [employer] Barron Gan MD [facility] # [id number]
--- NOTE | 2018-05-02 00:04 | PN ---
DATE: 05/01/2018 SUBJECTIVE: The patient is a 78-year-old male. The patient was seen and examined at the bedside on 05/01/2018, sitting on the bed in the room, having swelling of the legs, feeling heavy. Nurses have tried to do IV line, but not successful. No fever. No chills. No hematuria or hematochezia. No nausea, vomiting, diarrhea. No headache or dizziness. PHYSICAL EXAMINATION VITAL SIGNS: Temperature 98.6, pulse 60, blood pressure 125/62, respiratory rate 18. HEENT: Head: Normocephalic, atraumatic. Eyes: PERRLA. Extraocular muscles are intact. Conjunctivae clear. Nose patent. Mucous membranes moist. NECK: Supple. No carotid bruit. No JVD or thyromegaly. CHEST: Bilaterally symmetrical. HEART: S1 and S2, positive. LUNGS: Clear to auscultation. ABDOMEN: Soft. Bowel sounds present. No organomegaly. EXTREMITIES: No edema. No cyanosis. NEUROLOGIC: The patient is awake and alert. Moving all 4 extremities. No focal deficit. LABORATORY DATA: We do not have recent labs today, but I reviewed old labs. MEDICATIONS: Norvasc, Brovana, Pulmicort, dextrose, glyburide, insulin sliding scale, metformin, Protonix, Actos, Zosyn, prednisone. ASSESSMENT AND PLAN: Mr. Rodney Mccloud is a 78-year-old male with chronic obstructive lung disease, status post endoscopy; gastrointestinal bleeding with erosive esophagitis; cardiac diastolic dysfunction with pulmonary hypertension; aspiration pneumonia; hyperglycemia; hyperlipidemia; hypotension; diabetes mellitus. The patient is improving. Avoid aspiration. Continue inhaled bronchodilatation. Gastroesophageal reflux disease, continue sequential compression device to the lower extremities. Continue physical therapy as the patient does have activities of daily living dysfunction. Discontinue IV fluid. Dose of Lasix given. We will follow up. Repeat labs. Physical therapy. Kathi Katz MD
[2018-05-02] MEDS: Piperacillin/Tazobact 3.375 gm 100 ML IVPB SCH ×3 (05:24→21:43)
[2018-05-02] MEDS: Pantoprazole 40 mg EC Tab PO SCH ×2 (05:24→17:15)
[2018-05-02 06:07] VITALS: RESP 18
[2018-05-02 06:53] LABS: HEMOGLOBIN 10.6 g/dL (14.0-18.0); MEAN CORPUSCULAR HEMOGLOBIN 30.5 pg (25.0-35.0); MEAN CORPUSCULAR HGB CONC 32.4 g/dl (31.0-37.0); MEAN PLATELET VOLUME 9.3 fl (7.0-11.0); RBC 3.48 10^6/uL (3.5-6.1); RED CELL DISTRIBUTION WIDTH 13.2 % (11.5-14.5); WHITE BLOOD COUNT 11.2 10^3/uL (4.5-11.0)
[2018-05-02] MEDS: Insulin Reg-MEDIUM-Coverage SC SCH ×4 (07:15→22:00)
[2018-05-02 07:24] LABS: BLOOD UREA NITROGEN 20 mg/dL (7-21); CALCIUM 9.4 mg/dL (8.4-10.5); GFR NON-AFRICAN AMERICAN > 60
[2018-05-02] MEDS: Budesonide 0.5 mg/2 ml Inhal Susp UD IH SCH ×2 (08:12→20:55)
[2018-05-02] MEDS: Arformoterol 15 mcg/2 ml Inh Sol IH SCH ×2 (08:12→20:56)
--- NOTE | 2018-05-02 13:54 | PN ---
PULMONARY PROGRESS NOTE DATE: 05/02/2018 REFERRING PHYSICIAN: Dr. Katz. SUBJECTIVE: The patient is in physical therapy. No acute distress. No overnight events reported. The patient does report that he had slight nose bleed this morning, has not been using oxygen for past couple of days as that is on a p.r.n. basis. No cough, shortness of breath, chest pain, abdominal pain, nausea, vomiting, diarrhea, dysuria, leg pain or leg swelling reported. Complaints of dizziness when getting up reported. Reports sore throat. OBJECTIVE: GENERAL: No acute distress. VITAL SIGNS: Blood pressure 131/67, pulse 80, temperature 98 and oxygen saturation 94% on room air. HEENT: Moist mucus membranes. Crowded airway. No oral cavity. NECK: Supple. No JVD. LUNGS: Clear bilaterally. No audible wheeze. CARDIOVASCULAR: S1 and S2, audible. ABDOMEN: Soft and nontender. No distention. No organomegaly. EXTREMITIES: No bilateral lower extremity edema. NEUROLOGIC: Awake, alert and verbal. Follows simple commands. LABORATORY DATA: Reviewed. WBC 11.2, RBC , hemoglobin 10.6, hematocrit 32.7 and platelets 268. Sodium 137, potassium 3.6, chloride 100, carbon dioxide 32, anion gap of 9, BUN 20, creatinine 1, GFR is greater than 60, POC glucose 115, random glucose 120 and calcium 9.4. MEDICATIONS: Reviewed. Norvasc 5 mg p.o. daily, Brovana 15 mcg inhalation every 6 hours, Pulmicort 0.5 mg inhalation every 12 hours, dextrose, IV fluids, Vaseline ointments as needed to affected area, Lasix 40 mg daily, Glyburide 5 mg twice a day, insulin sliding scale, Humulin R, iron sucrose 200 mg, metformin 500 mg twice a day, pantoprazole 40 mg twice a day, Actos 30 mg daily, Zosyn 3.375 mg every 8 hours and prednisone 15 mg daily. IMPRESSION AND PLAN: Chronic obstructive lung disease, gastrointestinal bleed with erosive esophagitis, cardiac diastolic dysfunction with pulmonary hypertension, suspected sleep apnea syndrome, diabetes, hypoglycemia, hyperlipidemia and anemia. Pulmonary point of view, the patient refuses continuous positive airway pressure machine. Sleep apnea precaution, keep head of bed elevated at 45 degrees, continue inhaled bronchodilators, gastroesophageal reflux disease, continue sequential compression devices to lower extremities, continue physical therapy for activities of daily living dysfunction. We will add nasal saline to both nostrils. Will order orthostatic hypotension blood pressure to be done. Will review blood pressure medications and adjust as needed. We recommend the patient have attended sleep study and full pulmonary function test as outpatient. This patient was seen and examined with Dr. Gan. Discussed assessment and plan as described above. Thank you for this consult, and we will follow with you. Matty Moore APN Barron Gan MD [facility]
[2018-05-02] MEDS ORDERED: Benzocaine/Menthol (Cepacol) Lozenge MT PRN (14:45)
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
[2018-05-03] MEDS: Piperacillin/Tazobact 3.375 gm 100 ML IVPB SCH (05:30)
[2018-05-03] MEDS: Pantoprazole 40 mg EC Tab PO SCH (05:31)
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
[2018-05-03] MEDS: Insulin Reg-MEDIUM-Coverage SC SCH ×2 (06:36→11:51)
[2018-05-03] MEDS: Arformoterol 15 mcg/2 ml Inh Sol IH SCH (08:30)
[2018-05-03] MEDS: Budesonide 0.5 mg/2 ml Inhal Susp UD IH SCH (08:31)
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
[2018-05-03 10:15] VITALS: BP 118/61; PULSE 92; TEMP 98.7
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
[2018-05-03 13:37] VITALS: O2SAT 99
== END 2018-05-03 13:37 | disposition home or self-care (01) | DRG 945 ==
LOC: TRCU 02:48
PROVIDERS: ADMIT Internal Medicine; ATTEND Internal Medicine
PROC: 3E0F7GC Introduction of Other Therapeutic Substance into Respiratory Tract, Via Natural or Artificial Opening (ICD-10-PCS; 2018-04-28)
PROC: F07Z9ZZ Gait Training/Functional Ambulation Treatment (ICD-10-PCS; principal; 2018-04-29)
PROC: F08Z4ZZ Home Management Treatment (ICD-10-PCS; 2018-04-30)
DX: R53.1 Weakness (principal); A41.9 Sepsis, unspecified organism; J69.0 Pneumonitis due to inhalation of food and vomit; R65.20 Severe sepsis without septic shock; K22.10 Ulcer of esophagus without bleeding; J44.0 Chronic obstructive pulmonary disease with (acute) lower respiratory infection; Z79.2 Long term (current) use of antibiotics; D63.8 Anemia in other chronic diseases classified elsewhere; I27.20 Pulmonary hypertension, unspecified; K21.9 Gastro-esophageal reflux disease without esophagitis; E11.65 Type 2 diabetes mellitus with hyperglycemia; E78.00 Pure hypercholesterolemia, unspecified; I10 Essential (primary) hypertension; Y95 Nosocomial condition; Z79.84 Long term (current) use of oral hypoglycemic drugs